=== PATIENT | female | born 1995 | race Caucasian/White ===

== ENCOUNTER 2019-12-08 20:06 | Emergency (ER) | payer OTHER ==
[~2019-12-08] VITALS: Ht 162.6 cm; Wt 165.0 kg
== END 2019-12-08 23:14 | disposition home or self-care (01) ==
LOC: ER 20:06
DX: S43.52XA Sprain of left acromioclavicular joint, initial encounter (principal); S93.401A Sprain of unspecified ligament of right ankle, initial encounter; W19.XXXA Unspecified fall, initial encounter; Y93.67 Activity, basketball
CPT/HCPCS: 73030; 73610; 99283-25

== ENCOUNTER 2020-04-28 09:00 | Day surgery (SDC) | payer OTHER ==
[2020-04-25 14:05] LABS: BASOPHILS ABSOLUTE AUTO 0.03 K/mm3 (0.00-0.23); BASOPHILS PERCENT AUTO 0 % (0-2); EOSINOPHILS ABSOLUTE AUTO 0.08 K/mm3 (0.00-0.68); EOSINOPHILS PERCENT AUTO 1 % (0-6); Hematocrit 41.2 % (33.0-51.0); IMMATURE GRAN ABSOLUTE AUTO 0.03 K/mm3 (0.00-0.10); IMMATURE GRAN PERCENT AUTO 0 % (0-1); LYMPHOCYTES ABSOLUTE AUTO 1.68 K/mm3 (0.84-5.20); LYMPHOCYTES PERCENT AUTO 25 % (21-46); MONOCYTES ABSOLUTE AUTO 0.56 K/mm3 (0.16-1.47); MONOCYTES PERCENT AUTO 8 % (4-13); Mean Corpuscular HGB 28.3 pg (26.0-34.0); Mean Corpuscular HGB Conc 31.6 g/dL (31.5-36.5); Mean Corpuscular Volume 90 fL (80-100); Mean Platelet Volume 8.7 fL (9.1-12.4); NEUTROPHILS ABSOLUTE AUTO 4.47 K/mm3 (1.96-9.15); NEUTROPHILS PERCENT AUTO 65 % (41-73); Platelet Count 321 K/mm3 (150-400); RDW Coefficient Variation 11.8 % (11.7-14.2); RDW Standard Deviation 38.1 fL (35.1-46.3); White Blood Cell Count 6.85 K/mm3 (4.00-11.30)
[~2020-04-28] VITALS: Ht 162.6 cm; Wt 77.1 kg
[~2020-04-28 09:00] MED LIST: CLON.5 PO; DIVA500ER PO; FLONASE ALLERG9.9 M2; IBUP200 PO; QUET100 PO; SERT100 PO; ZYRTEC10 M2 PO; [UNRECOGNIZED DRUG - OTHER] PO
[2020-04-28] MEDS ORDERED: Seroquel Xr50 MG PO (09:48)
--- NOTE | 2020-04-28 09:49 | NUR ---
PT ADMITTED TO [facility]. AGREES WITH PLANNED SURGERY. PT WITH DEVELOPMENTAL DELAY, CAREGIVER AT BEDSIDE. PT ALERT, ANSWERS APROPRIATLY. SPEECH CAN BE DIFFICULT TO UNDERSTAND.
--- NOTE | 2020-04-28 10:43 | NUR ---
DIFFICULT IV START. 20G PLACED GOTTEN ON 6TH ATTEMPT. OTHER ATTEMPTS BY GIULIA VELASCO RN X2 AND CARMEN OLSEN RN X2. PT TOLERATED WELL.
--- NOTE | 2020-04-28 11:10 | NUR ---
REPORT GIVEN TO YENY ANTONIO RN.
--- NOTE | 2020-04-28 12:11 | NUR ---
IV SITE LEAKING. IV ATTMEPTED MULTIPLE TIMES AGAIN. ACCESSESS OBTAINED ON RIGHT HAND (20G) BY DR. CALDERON. PT TOLERATED WELL.
--- NOTE | 2020-04-28 19:01 | NUR ---
SHIFT SUMMARY PT WAS INTIALLY VERY ANXIOUS AND HARD TO KEEP IN BED BUT QUICKLY CALMED. PT CANNOT USE NUMBER SCALE DUE TO HER DEVELOPMENTALLY DELAY. BUT EASILY COMMUNICATES PAIN. STATES "MY TUMMY HURTS" OR IS HAPPY AND LAUGHING. WHILE DRINKING JUICE AND WATCHING TV SHE STATES "THIS IS THE BEST DAY EVER. I FEEL GREAT" SHE IS CURRENTLY SMILING AND LAUGHING TALKING TO HERSELF.
[2020-04-29 04:00] LABS: BASOPHILS ABSOLUTE AUTO 0.01 K/mm3 (0.00-0.23); BASOPHILS PERCENT AUTO 0 % (0-2); EOSINOPHILS ABSOLUTE AUTO 0.01 K/mm3 (0.00-0.68); EOSINOPHILS PERCENT AUTO 0 % (0-6); Hematocrit 37.1 % (33.0-51.0); Hemoglobin 11.9 g/dL (11.5-16.0); IMMATURE GRAN ABSOLUTE AUTO 0.02 K/mm3 (0.00-0.10); IMMATURE GRAN PERCENT AUTO 0 % (0-1); LYMPHOCYTES PERCENT AUTO 20 % (21-46); MONOCYTES ABSOLUTE AUTO 0.85 K/mm3 (0.16-1.47); MONOCYTES PERCENT AUTO 9 % (4-13); Mean Corpuscular HGB 28.3 pg (26.0-34.0); Mean Corpuscular HGB Conc 32.1 g/dL (31.5-36.5); Mean Corpuscular Volume 88 fL (80-100); Mean Platelet Volume 8.6 fL (9.1-12.4); NEUTROPHILS ABSOLUTE AUTO 6.82 K/mm3 (1.96-9.15); NEUTROPHILS PERCENT AUTO 71 % (41-73); Platelet Count 261 K/mm3 (150-400); RDW Coefficient Variation 11.9 % (11.7-14.2); RDW Standard Deviation 38.1 fL (35.1-46.3); White Blood Cell Count 9.61 K/mm3 (4.00-11.30)
[2020-04-29] MEDS ORDERED: Percocet 5-3251 EACH PO (09:56)
[2020-04-29] MEDS ORDERED: IBUP100S PO (09:57)
[2020-04-29] MEDS ORDERED: PROM25 PO (09:58)
[2020-04-29] MEDS ORDERED: DOCU100 PO (12:24)
[2020-04-29] MEDS ORDERED: SENN187 PO (12:25)
[2020-04-29] MEDS ORDERED: Milk Of Ma400 MG/5 M PO (12:25)
[2020-04-29] MEDS ORDERED: Gas Relief80 MG PO (12:26)
[2020-04-29] MEDS ORDERED: IBUP800 PO (12:30)
--- NOTE | 2020-04-29 13:15 | NUR ---
1250 discharged to home with mother. denies nausea and shwetha po food and fluids. pt reports pain is well controlled
--- NOTE | 2020-05-01 15:26 | NUR ---
05/01/20 1526 Chrystal Wells VERIFICATIONS: EDIT CHART.
== END 2020-04-29 12:51 | disposition home or self-care (01) ==
LOC: ORSCMMR 09:00 → ORD 11:15 → ORSCMMR 11:15 → SURS 15:56 → ORSCMMR 04-29 12:51
PROVIDERS: Obstetrics & Gynecology
PROC: 0U5F4ZZ Destruction of Cul-de-sac, Percutaneous Endoscopic Approach (ICD-10-PCS; principal; 2020-04-28 11:15)
PROC: 8E0W4CZ Robotic Assisted Procedure of Trunk Region, Percutaneous Endoscopic Approach (ICD-10-PCS; principal; 2020-04-28 11:15)
PROC: 0UT94ZZ Resection of Uterus, Percutaneous Endoscopic Approach (ICD-10-PCS; principal; 2020-04-28 11:15)
PROC: 0UT74ZZ Resection of Bilateral Fallopian Tubes, Percutaneous Endoscopic Approach (ICD-10-PCS; principal; 2020-04-28 11:15)
DX: N92.0 Excessive and frequent menstruation with regular cycle (principal); N94.4 Primary dysmenorrhea; R10.2 Pelvic and perineal pain; N80.0 Endometriosis of uterus; N72 Inflammatory disease of cervix uteri; R62.50 Unspecified lack of expected normal physiological development in childhood; Z79.899 Other long term (current) drug therapy
CPT/HCPCS: 58571; 58662; S2900; 36415; 84702; 85025; 86850; 86900; 86901; 88307; J0690; J1100; J1885; J2250; J2405; J2704; J3010; J7120

== ENCOUNTER 2023-11-17 15:59 | Inpatient (IN) | payer OTHER ==
[~2023-11-17] VITALS: Ht 162.6 cm; Wt 81.7 kg
[~2023-11-17 15:59] MED LIST changes: -ABILIFY MYCITE10 M2 PO; -ABILIFY MYCITE5 M2 PO; -DIVA250EC PO; -DIVA500EC PO; -ESTRADIOL1 MG PO; -MIRT15ST PO; -Naltrexone HCl50 MG PO; -VALP250 PO
[2023-11-17] MEDS ORDERED: ABILIFY MYCITE10 M2 PO (16:27)
[2023-11-17] MEDS ORDERED: ABILIFY MYCITE5 M2 PO (16:27)
[2023-11-17] MEDS ORDERED: VALP250 PO (16:28)
[2023-11-17] MEDS ORDERED: ESTRADIOL1 MG PO (16:29)
[2023-11-17] MEDS ORDERED: DIVA500EC PO (16:29)
[2023-11-17] MEDS ORDERED: Naltrexone HCl50 MG PO (16:30)
[2023-11-17] MEDS ORDERED: ZYRTEC10 M2 PO (16:30)
[2023-11-17] MEDS ORDERED: MIRT15ST PO (16:30)
[2023-11-17] MEDS ORDERED: SERT100 PO (16:30)
[2023-11-17] MEDS ORDERED: IBUP200 PO (16:31)
[2023-11-17] MEDS ORDERED: DIVA250EC PO (16:33)
[2023-11-17 18:40] LABS: Adenovirus Not Detected (NOT DETECT); Bordetella pertussis Not Detected (NOT DETECT); Chlamydophila pneumoniae Not Detected (NOT DETECT); Coronavirus 229E Not Detected (NOT DETECT); Coronavirus HKU1 Not Detected (NOT DETECT); Coronavirus NL63 Not Detected (NOT DETECT); Coronavirus OC43 Not Detected (NOT DETECT); Human Metapneumovirus Not Detected (NOT DETECT); Human Rhinovirus/Enterovirus Not Detected (NOT DETECT); Influenza A/2009-H1 Not Detected (NOT DETECT); Influenza A/H1 Not Detected (NOT DETECT); Influenza A/H3 Not Detected (NOT DETECT); Influenza B Detected (NOT DETECT); Mycoplasma pneumoniae Not Detected (NOT DETECT); Parainfluenza Virus 1 Not Detected (NOT DETECT); Parainfluenza Virus 2 Not Detected (NOT DETECT); Parainfluenza Virus 3 Not Detected (NOT DETECT); Parainfluenza Virus 4 Not Detected (NOT DETECT); Respiratory Syncytial Virus Not Detected (NOT DETECT); SARS-Cov-2 (COVID-19), BioFire Not Detected (NOT DETECT)
[2023-11-17 20:49] VITALS: BP 110/70
[2023-11-18] VITALS (7 sets, daily range): BP systolic 102–121; BP diastolic 62–77
[2023-11-18 04:54] LABS: Hematocrit 31.2 % (33.0-51.0); Hemoglobin 10.1 g/dL (11.5-16.0); Mean Corpuscular HGB 28.4 pg (26.0-34.0); Mean Corpuscular HGB Conc 32.4 g/dL (31.5-36.5); Mean Corpuscular Volume 88 fL (80-100); Mean Platelet Volume 9.1 fL (9.1-12.4); Platelet Count 152 K/mm3 (150-400); RDW Coefficient Variation 12.5 % (11.7-14.2); RDW Standard Deviation 40.7 fL (35.1-46.3); Red Blood Cell Count 3.56 M/mm3 (3.80-5.20); White Blood Cell Count 6.77 K/mm3 (4.00-11.30)
[2023-11-18 05:15] LABS: Bun/Creatinine Ratio 14.9 (12.0-20.0); Creatinine, Blood 0.8 mg/dL (0.40-1.00); Potassium, Blood 3.8 mmol/L (3.5-5.5)
--- NOTE | 2023-11-18 05:30 | NUR ---
PATIENT IS ALERT AND ORIENTED X3, WITH OXYGEN AT 4 LPM/NASAL CANNULA. SHE CAME IN LAST NIGHT WITH HER MOM. WITH PVI LINE ON RIGHT WRIST PATENT AND INTACT. PLACED ON CONTACT PRECAUTION DUE TO INFLUENZA B. NOTED COUGHING FROM PATIENT. ASSISTED PATIENT TO THE BATHROOM. NO SKIN ISSUES NOTED. SHE WAS ABLE TO TAKE HER PILLS WITH ORANGE JUICE WITHOUT ANY ISSUES. HAD VOMITING X1 EPISODE, MEDICATED ACCOORDINGLY. NEEDS ATTENDED. CALL LIGHT WITHIN PATIENT'S REACH. WILL CONTINUE TO MONITOR.
[2023-11-18 16:31] LABS: Base Excess Venous 0.7 mmol/L; Bicarbonate Venous 25.1 mmol/L (24.0-30.0); PCO2 Venous 36.8 mmHg (38-42); pH Blood Venous 7.44 (7.34-7.37)
--- NOTE | 2023-11-18 17:36 | NUR ---
TRANSFER TO ICU: PT TRANFERRED FROM ROOM 303 TO ICU-16 AT APPROX 1715. THE PT IS PCU STATUS BUT IN DISCUSSION W/ PRIMARY MEDICAL FLOOR RN, UCHE & BLANE R, RT, IT IS DETERMINED THAT TRANFERRING TO THE ICU WILL BE MORE APPROPRIATE R/T PT's CONTINUED REMOVAL OF BIPAP MASK W/ DESATS NOTED TO LOW 80s WHEN OFF O2. ON ARRIVAL, THE PT IS DROWSY BUT AWAKENS EASILY. SHE IS A&O TO HERSELF, FAMILY & FOLLOWING DIRECTIONS. CAROL. HX DEVELOPMENTAL DELAY, PT's MOTHER HEATHER AT BEDSIDE & ASSIST W/ CARE MEASURES. LS DIM T/O, OCCASIONAL CONGESTED COUGH NOTED W/ NO SPUTUM VISUALIZED. PT ON BIPAP W/ SETTINGS: 18/7 & 60% FIO2, BACKUP RATE 14. PT TACHYPNEIC W/ RR 25-42, O2 SATS CURRENTLY READING > 95%. PT PERIODICALLY PLACED THUMB UNDER BIPAP MASK TO BREAK SEAL BUT IS REDIRECTABLE. MONITOR SHOWS SR W/ HR 70s, BP STABLE. PT NPO R/T BIPAP USE & SOMENOLENCE AT THIS TIME. PT IS CONTINENT OF URINE AT BASELINE, CURRENTLY WEARING ATTENDS R/T INCONTINENCE OF BOWEL & BLADDER ON ADMIT. SKIN OVERALL INTACT, Q2H REPOSITIONING TO MAINTAIN SKIN INTEGRITY. WILL CONTINUE TO MONITOR & REPORT OFF TO ONCOMING RN.
--- NOTE | 2023-11-18 17:42 | NUR ---
THROUGHOUT MORNING PT WAS ABLE TO STATE HER NEEDS AND AMBULATE TO BATHROOM WITH STANDBY ASSIST. PLACED PT ON CONT BIOX THIS AM D/T DESAT INTO HIGH 80'S WHILE AMBULATING. PT ABLE TO QUICKLY RETURN TO LOW TO MID 90'S ON 4L NC WITH A RESPIRATORY RATE OF 23 BPM. AROUND 1500 RT CAME OUT OF ROOM ASKING FOR HELP PT WAS TACHYPNEIC AND HYPOXIC DESPITE BEING TRANSITIONED TO 4L VIA MASK. 02 INCREASED TO 6L WITH LITTLE RESOLUTION. PT THEN TRANSITIONED TO BIPAP. PT ATTEMPTED TO PULL ON NC AND MASKS IN ATTEMPT TO HAVE OXYGEN OFF. DR. RAMOS ARRIVED TO ROOM TO ASSESS PT. STAT CT PE STUDY ORDERED. RESULTS IN CHART. NEW IV PLACED IN RAC. PT TOLERATED CT WELL. 02 SATS @ 96% ON BIPAP. REPORT GIVEN TO ISH YOO IN ICU. PT MOTHER AT BEDSIDE.
--- NOTE | 2023-11-18 19:00 | NUR ---
CARE ASSUMPTION DURING BEDSIDE SHIFT REPORT W NAILA DENG THE PT IS LYING IN BED WEARING BIPAP MASK. RT, DR. MATOS AND THE PT'S MOTHER ALL AT BEDSIDE AT THIS TIME. PT'S SPO2 >94% ON BIPAP 14/6 W 40% FIO2 BUT IS VERY TACHYPNEIC W RR 30-40. PT IS ALERT AND MAINTAINING EYE CONTACT. CARE ASSUMED AT THIS TIME.
[2023-11-19] VITALS (24 sets, daily range): BP systolic 93–123; BP diastolic 63–96
--- NOTE | 2023-11-19 06:29 | NUR ---
FORMULA WEIGHER SUMMARY PT HAS REMAINED ALERT AND ORIENTED X3 THIS SHIFT USING THE CALL LIGHT TO MAKE HER NEEDS KNOWN. PT BEGAN SHIFT ON BIPAP 16/6 W 40% FIO2 BUT WAS ABLE TO COME OFF FOR SEVERAL HOURS ONTO 10L OXYMIZER BUT DID REQUIRE THE BIPAP AGAIN THIS AM AND REMAINS 14/6 W 35% FIO2. PT'S SPO2 DOES DROP RAPIDLY WHEN OFF OF O2 INTO THE 70'S. BP STABLE THIS SHIFT. MONITOR HAS SHOWN SR 80'S-90'S THIS SHIFT. PT AFEBRILE. PT REMAINS TACHYPNEIC W SHALLOW TIGHT RESPIRATIONS. PT WAS BEING ORALLY SUCTIONED THIS AM AND VAGALED DOWN RESULTING IN BRIEF BRADYCARDIA AT 40 BPM WHICH RESOLVED QUICKLY. PT HAD SEVERAL SMALL LOOSE BM'S THIS SHIFT. WILL REPORT TO ONCOMING RN.
[2023-11-19 08:03] LABS: BASOPHILS ABSOLUTE AUTO 0.01 K/mm3 (0.00-0.23); BASOPHILS PERCENT AUTO 0 % (0-2); EOSINOPHILS PERCENT AUTO 0 % (0-6); Hematocrit 29.7 % (33.0-51.0); Hemoglobin 9.4 g/dL (11.5-16.0); IMMATURE GRAN ABSOLUTE AUTO 0.01 K/mm3 (0.00-0.10); IMMATURE GRAN PERCENT AUTO 0 % (0-1); LYMPHOCYTES ABSOLUTE AUTO 0.85 K/mm3 (0.84-5.20); LYMPHOCYTES PERCENT AUTO 16 % (21-46); MONOCYTES PERCENT AUTO 10 % (4-13); Mean Corpuscular HGB 28.3 pg (26.0-34.0); Mean Corpuscular HGB Conc 31.6 g/dL (31.5-36.5); Mean Corpuscular Volume 90 fL (80-100); Mean Platelet Volume 9.2 fL (9.1-12.4); NEUTROPHILS ABSOLUTE AUTO 3.83 K/mm3 (1.96-9.15); NEUTROPHILS PERCENT AUTO 74 % (41-73); Platelet Count 146 K/mm3 (150-400); RDW Standard Deviation 42.7 fL (35.1-46.3); Red Blood Cell Count 3.32 M/mm3 (3.80-5.20)
[2023-11-19 08:19] LABS: Albumin, Blood 2.4 g/dL (3.4-5.0); Albumin/Globulin Ratio 0.6 (0.8-1.8); Bilirubin, Total 0.3 mg/dL (0.1-1.0); Bun/Creatinine Ratio 9.4 (12.0-20.0); Calcium, Blood 7.8 mg/dL (8.5-10.1); Creatinine, Blood 0.74 mg/dL (0.40-1.00); Globulin, Blood 4.1 g/dL (2.2-4.0); Potassium, Blood 4.2 mmol/L (3.5-5.5); Total Protein, Blood 6.5 g/dL (6.4-8.2)
--- NOTE | 2023-11-19 10:01 | NUR ---
CARE OF PT ASSUMED AT 0700. PT INITIALLY SLEEPING ON BIPAP, PT PLACED ON OXYMIZER AT 10L, SATS HAVE REMAINED >90%. PT HAS COURSE RHONCHI TO BASES, RHONCHI T/O, DIMINISHED TO BASES, TACHYPNEA, DYSPNEA W EXERTION. RESP SHALLOW, RAPID, AND LABORED AT TIMES. CPT STARTED TODAY. PT WITH LIQUID DIARRHEA/URGENCY, SOME INCONTINENCE. IMODIUM STARTED. PT ABLE TO LET NEEDS KNOWN. REQUEST OJ AND ASSIST WITH BATHROOM, USES CALL LIGHT APPROPRIATELY. PT WITH DEVELOPMENTAL DELAY, C/O NAUSEA THIS AM; ZOFRAN GIVEN. FRANK LIQUIDS. PT STATES, "I AM VERY SICK". PT GIVEN BEDBATH AND WARM BLANKETS, AFEBRILE. DR RAMOS IN TO SEE PT THIS AM, DR MATOS GIVEN UPDATE. PT'S MOTHER GIVEN UPDATE BY WHIP OPERATOR.
--- NOTE | 2023-11-19 12:08 | NUR ---
PT DROWSY, UNABLE TO EAT LUNCH SAFELY. PT'S MOTHER AT BEDSIDE. DR MATOS WAS IN EARLIER TO SEE PT AND SPOKE WITH PT'S MOTHER. OXYMIZER CHANGED TO AIRVO 50L/50% BY RT.
[2023-11-19 13:41] LABS: Base Excess Venous 1.2 mmol/L; Bicarbonate Venous 25.2 mmol/L (24.0-30.0); PCO2 Venous 43.8 mmHg (38-42); pH Blood Venous 7.39 (7.34-7.37)
--- NOTE | 2023-11-19 16:49 | NUR ---
1400 KLONOPIN HELD FOR SEDATION. PT MUCH MORE AWAKE THIS AFTERNOON. AWAKE WATCHING CARTOONS, ABLE TO USE CALL LIGHT. DIARRHEA HAS SLOWED SLIGHTLY WITH IMODIUM. SATS >90% ON AIRVO AT 55L/57%. RT PROVIDING CPT AND NAC UPDRAFTS TO HELP LOOSEN SPUTUM. PT ABLE TO COUGH UP LARGE AMTS OF THICK SPUTUM AT TIMES, OTHERWISE COUGH REMAINS WEAK. PT'S MOM HAS BEEN AT BEDSIDE THROUGHOUT SHIFT. NS DECREASED TO 50CC/HR. PT TOLERATING SBA TO COMMODE, SATS DO NOT DROP <90% WITH ACTIVITY. PT HAS HAD POOR APPETITE BUT ENJOYS DRINKING ORANGE JUICE.
--- NOTE | 2023-11-19 20:36 | NUR ---
ASSUMPTION OF CARE REPORT RECEIVED FROM DAYSHIFT RN. PT RESTING IN BED, SLEEPING BUT AROUSABLE. PT COMMUNICATES WITH STAFF APPROPRIATELY. PT WEAK BUT ABLE TO MOVE ALL EXTREMITIES EQUALLY BILATERALLY. HR 80'S SINUS, MAP >65, SBP 100'S. PT ON AIRVO 55L 64%, OXYGEN SATURATION >90%, PT IS TACHYPNIC WITH SHALLOW RESPIRATIONS. PT UP TO BEDSIDE COMMODE WITH ASSISTANCE, MINIMAL LIQUID STOOL NOTED IN ATTENDS. ATTENDS REPLACED. PT COMPLAINED OF NAUSEA, MEDICATED PER EMAR. PT DENIES CP. PIV TO KISHAN INFUSING NS AT 50MLS/HR. PIV TO RAC SL. BED IN LOWEST POSITION, CALL LIGHT WIHTIN REACH, CARE CONTINUES.
--- NOTE | 2023-11-19 23:23 | NUR ---
PT UPDATE PT BECAME MORE AGITATED, ATTEMPTING AND SUCCEEDING TO PULL OFF THE AIRVO. PT RESISTING BY SHAKING HEAD BACK AND FORTH AND PULLING WHEN TRYING TO REPLACE THE CANULA. PT NOT REDIRECTABLE, CONTINUES TO PULL AT AIRVO. KLONOPIN GIVEN PER EMAR. PT DESATURATED TO 80'S. RT CALLED, PT PLACED BACK ON BIPAP 16/6 100%. PT CONTINUES TO ATTEMPT TO PULL AT MASK, ATIVAN GIVEN PER EMAR WITH LITTLE EFFECT. PT DESATURATED TO THE 60-70'S. CALL PLACED TO DR. MATOS REGARDING PT CONDITION, ORDERS RECEIVED TO INCREASE BIPAP SETTINGS, BIPAP SETTINGS CURRENTLY 16/8 45%, OXYGEN SATURATION INCREASED, CURRENTLY AT 96%. ORDERS RECEIVED FOR ATIVAN AND PRECEDEX IF NEEDED. PT NOW RESTING COMFORTABLY WITH SITTER AT BEDSIDE.
[2023-11-20] VITALS (25 sets, daily range): BP systolic 93–141; BP diastolic 65–123
[2023-11-20 04:11] LABS: Base Excess Venous 3.1 mmol/L; Bicarbonate Venous 26.3 mmol/L (24.0-30.0); PCO2 Venous 52.4 mmHg (38-42); pH Blood Venous 7.35 (7.34-7.37)
[2023-11-20 04:40] LABS: BASOPHILS ABSOLUTE AUTO 0.02 K/mm3 (0.00-0.23); BASOPHILS PERCENT AUTO 0 % (0-2); EOSINOPHILS ABSOLUTE AUTO 0.01 K/mm3 (0.00-0.68); EOSINOPHILS PERCENT AUTO 0 % (0-6); Hematocrit 28.4 % (33.0-51.0); Hemoglobin 8.9 g/dL (11.5-16.0); IMMATURE GRAN ABSOLUTE AUTO 0.05 K/mm3 (0.00-0.10); IMMATURE GRAN PERCENT AUTO 1 % (0-1); LYMPHOCYTES ABSOLUTE AUTO 1.29 K/mm3 (0.84-5.20); LYMPHOCYTES PERCENT AUTO 29 % (21-46); MONOCYTES ABSOLUTE AUTO 0.57 K/mm3 (0.16-1.47); MONOCYTES PERCENT AUTO 13 % (4-13); Mean Corpuscular HGB 28.2 pg (26.0-34.0); Mean Corpuscular HGB Conc 31.3 g/dL (31.5-36.5); Mean Corpuscular Volume 90 fL (80-100); Mean Platelet Volume 9.3 fL (9.1-12.4); NEUTROPHILS ABSOLUTE AUTO 2.55 K/mm3 (1.96-9.15); NEUTROPHILS PERCENT AUTO 57 % (41-73); Platelet Count 161 K/mm3 (150-400); RDW Coefficient Variation 12.9 % (11.7-14.2); Red Blood Cell Count 3.16 M/mm3 (3.80-5.20); White Blood Cell Count 4.49 K/mm3 (4.00-11.30)
[2023-11-20 04:54] LABS: Bun/Creatinine Ratio 7.6 (12.0-20.0); Creatinine, Blood 0.79 mg/dL (0.40-1.00); Potassium, Blood 4.1 mmol/L (3.5-5.5)
--- NOTE | 2023-11-20 05:53 | NUR ---
SHIFT SUMMARY PT RESTING IN BED, SLEEPING BUT AROUSABLE. PT COMMUNICATE WITH STAFF APPROPRIATELY, USES CALL LIGHT. PT CONTINUES TO ATTEMPT TO PULL AT BIPAP MASK, PT REDIRECTABLE ALSO MEDICATED WITH ATIVAN PER EMAR WITH GOOD RESULT. PT MOVES ALL EXTREMITIES EQUALLY BILATERALLY. PT COMPLAINED OF HEADACHE, MEDICATED WITH TYLENOL PER EMAR. HR 70-80'S SINUS, PT HAS HAD TO EPISODES OF HR DOWN TO THE 40-50'S, SEE STRIPS IN CHART. BP STABLE, MAP >65, SBP 100-120'S. PT SWITCHED TO BIPAP MASK THIS SHIFT, SETTINGS 16/8 35%, OXYGEN SATURATION >95%. PT DENIES URGE TO VOID, BLADDER SCAN SHOWED 453MLS. PT HAS HAD TWO EPISODES OF DIARRHEA, MEDICATED WITH IMODIUM PER EMAR. PT ALSO COMPLAINED OF NAUSEA ONCE THIS SHIFT, MEDICATED PER EMAR. PIV TO RAC AND KISHAN. NS INFUSING AT 50MLS/HR. BED IN LOWEST POSITION, CALL LIGHT WITHIN REACH, CARE CONTINUES.
[2023-11-20 07:32] LABS: Vancomycin, Trough 10.1 ug/mL (5.0-10.0)
--- NOTE | 2023-11-20 11:18 | NUR ---
AROUND WHILE IN MARTITA'S ROOM, SHE WAS STRUGGLING WITH KEEPING ON HER AIRVO, TRIALED DIFFERENT DELIVERY DEVICES AND SHE IS CURRENTLY ON HIFL NC AT 5L AND IS TOLERATING WELL WITH SATS IN MID 90S. SHE EXPRESSES FEELING BETTER AND DOESN'T WANT TO WEAR THE OXYGEN, SHE IS INFORMED AND EDUCATED ABOUT THE NEED FOR THE OXYGEN. A SITTER WAS OBTAINED TO HELP REMIND HER TO KEEP HER O2 IN HER NOSE. SHE HAS BEEN UP TO THE [facility] AND DONE WELL WITH THE TRANSFER, SHE WAS ABLE TO TAKE IN WATER, HER MEDS AND SOME ORANGE JUICE BUT ONLY TOOK IN ONE BITE OF HER BREAKFAST. MOTHER WAS HERE FOR A VISIT, FELT THAT SHE WAS "CON- TRIBUTING" TO [facility] WANTING TO REMOVE HER OXYGEN CANNULA SO SHE HAS LEFT. SITTER IN ROOM AND PT IS RESTING.
--- NOTE | 2023-11-20 15:23 | NUR ---
MARTITA CONTINUES TO GET UP TO THE BSC AND ASKS FOR HER BRIEF TO BE CHANGED, SHE HAS HAD MINIMAL OUTPUT. LIQUID DIARRHEA CONTINUES IN SMALL AMOUNTS. SHE HASN'T EATEN OR DRANK VERY MUCH TODAY. SHE HAS BEEN ENCOURAGED TO DRINK AND ONLY EATS A BITE OR TWO WITH HER MEALS.
--- NOTE | 2023-11-20 16:41 | NUR ---
MARTITA IS SHOWING SIGNS OF FATIGUE. HER RESP RATE HAS INCREASED CONSIDERABLY, HER HEART RATE IS HIGHER AND SATS DROPPING. SHE IS PLACED ON THE BIPAP WITH MUCH MORE RESISTANCE. SHE IS VERBALLY UPSET AND ASKED ABOUT STARTING THE MED TO "RELAX" HER. PRECEDEX STARTED AT 0.4MCG/KG AND EDUCATION TO MOM AND PATIENT ABOUT THE MEDS. MOM TRYING TO ENCOURAGE MARTITA TO SLOW DOWN HER BREATHING, RATE CONT IN THE 40-50'S.
--- NOTE | 2023-11-20 17:10 | NUR ---
MARTITA IS CALMING DOWN WITH THE USE OF THE PRECEDEX, MOTHER EDUCATED ABOUT THE MONITOR AND THE READINGS, SHE (MOM) CONCERNED ABOUT THE WAVEFORM ON THE PLETH GOING FLAT, INFORMED HER THAT WITH THE BLOOD PRESSURE CUFF GOING OFF THAT IS EXPECTED. MARTITA'S RESP RATE CONTINUE IN THE 30'S TO 40'S BUT SHE IS CALMING. EDUCATION PROVIDED TO BOTH PT AND MOM. SITTER REMAINS AT BEDSIDE TO KEEP HER FROM PULLING OFF HER OXYGEN.
--- NOTE | 2023-11-20 18:13 | NUR ---
MARTITA HAS BEEN ON THE BIPAP FOR THE LAST HOUR OR SO, SHE IS TOLERATING THE MASK BETTER WITH THE PRECEDEX 0.4. SHE HAS BEEN UP TO THE BSC EVERY COUPLE OF HOURS, HER BRIEF HAS NOT BEEN WET AND SHE HAS HAD UNMEASURABLE AMOUNTS OF URINE EACH TIME. SHE CONTINUES TO HAVE "LEAKAGE" OF LIQUID STOOL. SHE HASN'T HAD AN APPETITE, WILL TAKE 1-2 BITES AND THEN SAY SHE IS FINISHED. NOW THAT SHE IS ON THE MASK SHE IS ASKING FOR MORE TO DRINK, (SHE KNOWS THAT SHE CAN HAVE THE MASK OFF). GLENN REMAINS AT BEDSIDE.
--- NOTE | 2023-11-20 21:26 | NUR ---
ASSUMPTION OF CARE: RECEIVED REPORT FROM JACKIE DENG. PT ALERT AND ORIENTED TO PERSON AND PLACE. PT A LITTLE CONFUSED AT TIMES, OFTEN REPEATS HERSELF AND MOANS OUT. PT ON THE BIPAP WITH SETTINGS 16/8/35%. SPO2 >90%. PT DENIES SOB. PT DENIES ANY PAIN. PT FREQUENTLY TACHYPNIC WITH RR 30'S-50'S. LUNG SOUNDS CLEAR AND DIM T/O. SCALING MACHINE OPERATOR IN PLACE, SR WITH HR 60'S-70'S. SBP 130'S, DENIES CHEST PAIN OR PRESSURE. PT ABLE TO TOLERATE VERY QUICK BREAKS FROM THE BIPAP FOR A SIP OF WATER BUT DESATS TO THE 70'S-80'S. PT NOT ABLE TO VOID, BLADDER SCAN SHOWS 565 ML'S OF URINE. PRECEDEX INFUSING AT 0.4 MCG/KG/HR. NS AT 50 ML/HR. PIV'S INTACT. CALL LIGHT IN REACH. CASH MANAGEMENT CLERK AT THE BEDSIDE.
[2023-11-20 22:44] LABS: PCO2 Arterial 41.7 mmHg (35-45); PO2 Arterial 64.5 mmHg (80-100); pH Blood Arterial 7.43 (7.35-7.45)
[2023-11-21] VITALS (39 sets, daily range): BP systolic 81–139; BP diastolic 68–100
[2023-11-21 00:02] LABS: Source, Urine Foley catheter
[2023-11-21 00:31] LABS: Bilirubin, Urine Neg (Neg); Blood, Urine 2+ (Neg); Glucose Qualitative, Urine Neg (Neg); Ketones, Urine 2+ (Neg); Leukocyte Esterase, Urine Neg (Neg); Nitrite, Urine Neg (Neg); Protein, Urine 2+ (Neg); Urobilinogen, Urine NORM (Normal)
[2023-11-21 01:03] LABS: Appearance, Urine Hazy (Clear); Color, Urine Yellow (P-Yellow)
[2023-11-21 01:05] LABS: Bacteria Many /hpf; Red Blood Cells, Urine 0-2 /hpf (0-2); Squamous Epithelial Cells Mod /hpf (Few); White Blood Cells, Urine 0-2 /hpf (0-5)
--- NOTE | 2023-11-21 06:21 | NUR ---
SHIFT SUMMARY: PT MORE SOMNOLENT T/O THE SHIFT. AWAKENS TO VERBAL STIMULI AND MOANS BUT QUICKLY FALLS BACK ASLEEP WHEN NOT STIMULATED. PT ABLE TO STATE HER NAME AND THAT SHE IS IN THE HOSPITAL. PT REMAINS ON BIPAP T/O THE SHIFT, SETTINGS 18/8/40%. LUNG SOUNDS CLEAR/DIM T/O. MORE DIM ON THE LEFT SIDE. SPO2 89-90%. PT DESATS TO MID 70'S-80'S WHEN TRIALED OFF FOR BREAK FOR ORAL CARE/ SIP OF WATER. SCHOOL SUPERINTENDENT IN PLACE, SR/SB WITH HR 50'S-60'S. SBP 130'S. PRECEDEX AT 0.4 MCG/KG/HR, ATTEMPTED TO TITRATE PRECEDEX DOWN AND PT BECAME AGGITATED, STARTED PULLING AT THE BIPAP AND WAS NOT EASILY REDIRECTABLE. NS AT 50 ML/HR. PIV'S INTACT. PT UNABLE TO VOID, STRAIGHT CATH PERFORMED, 700 ML'S OF DARK URINE OUT. DR. MATOS GAVE ORDERS TO LEAVE DIAMOND IN PLACE FOR CRITICAL I&O. DIAMOND DRAINING TO GRAVITY. NO BM THIS SHIFT. SITTER REMAINS AT BEDSIDE. CALL LIGHT IN REACH.
--- NOTE | 2023-11-21 07:00 | NUR ---
ASSUME CARE: I have assumed care of this patient.
[2023-11-21 08:58] LABS: Vancomycin, Trough 22.4 ug/mL (5.0-10.0)
--- NOTE | 2023-11-21 15:52 | NUR ---
CAREGIVER UPDATE: Pt's caregiver at foster home updated with pt's permission.
--- NOTE | 2023-11-21 17:42 | NUR ---
SHIFT SUMMARY: Pt alert and plesant. She was up to chair for about an hour today. She was also up to commode a few times as well. Pt tolerates Airvo while off BIPAP, but becomes tachypnaic after some time. She does not tolerate BIPAP without precedex. Her mother was at bedside this afternoon and was updated on plan of care. Student nurse was observed provideing education to pt regarding the IS and flutter valve. Pt requires frequent reinforcement, but does elicit good cough. Browning patent and draining to gravity. Minimal appetite today.
--- NOTE | 2023-11-21 19:00 | NUR ---
ASSUMED CARE OF PT AT 1900 PT RESTING IN BED ON BIPAP AT THIS TIME. 1:1 SITTER PRESENT. PRECEDEX AT 0.3 MCG WITH TKO. VITALS WNL. DIAMOND CATH DRAINING YELLOW URINE AND APPEARS PATENT. PRECEDEX TURNED TO SB AT THIS TIME D/T PO MEDICATIONS NEEDED AT 2100. SEE FULL ASSESSMENT FOR FURTHER INFORMATION.
[2023-11-22] VITALS (23 sets, daily range): BP systolic 108–130; BP diastolic 44–87
[2023-11-22 04:00] LABS: Hematocrit 28.4 % (33.0-51.0); Hemoglobin 9.1 g/dL (11.5-16.0); Mean Corpuscular HGB 27.9 pg (26.0-34.0); Mean Corpuscular Volume 87 fL (80-100); Mean Platelet Volume 8.6 fL (9.1-12.4); NRBC ABSOLUTE 0.03 K/mm3 (0.00-0.02); NRBC Auto 0.4 /100 WBC (0.0-0.2); Platelet Count 242 K/mm3 (150-400); RDW Coefficient Variation 12.8 % (11.7-14.2); Red Blood Cell Count 3.26 M/mm3 (3.80-5.20); White Blood Cell Count 8.39 K/mm3 (4.00-11.30)
[2023-11-22 04:32] LABS: BAND PERCENT MAN 5 % (0-8); BASOPHILS PERCENT MAN 0 % (0-2); EOSINOPHILS ABSOLUTE MAN 0.25 K/mm3 (0.00-0.68); EOSINOPHILS PERCENT MAN 3 % (0-6); LYMPHOCYTES % ATYPICAL MANUAL 1 % (0-0); LYMPHOCYTES ABSOLUTE MAN 1.34 K/mm3 (0.84-5.20); LYMPHOCYTES PERCENT MAN 15 % (21-46); MONOCYTES ABSOLUTE MAN 0.58 K/mm3 (0.16-1.47); MONOCYTES PERCENT MAN 7 % (4-13); MYELOCYTE ABSOLUTE MAN 0.25 K/mm3 (0.00-0.00); MYELOCYTE PERCENT MAN 3 % (0-0); NEUTROPHILS ABSOLUTE MAN 5.95 K/mm3 (1.96-9.15); SEG NEUTROPHILS PERCENT MAN 66 % (41-73); TOTAL CELLS COUNTED 100
[2023-11-22 04:40] LABS: Anion Gap 5 mmol/L (6-16); Blood Urea Nitrogen 8 mg/dL (8-24); CO2, Blood 28 mmol/L (21-32); Chloride, Blood 107 mmol/L (98-108); Creatinine, Blood 0.67 mg/dL (0.40-1.00); Glomerular Filtration Rate 124 (60-); Glucose, Blood 103 mg/dL (70-99); Phosphorus, Blood 5.4 mg/dL (2.5-4.9); Potassium, Blood 3.7 mmol/L (3.5-5.5); Sodium, Blood 140 mmol/L (136-145)
--- NOTE | 2023-11-22 06:03 | NUR ---
END OF SHIFT SUMMARY PT RESTED ON BIPAP WITH PRECEDEX MOST OF THIS SHIFT. PT WILL NOT TOLERATE BIPAP AND REFUSED TO WEAR IT UNTIL PRECEDEX WAS GIVEN TIME TO CALM PT. 1:1 SITTER LEFT THIS AM AT 0520 D/T NO NEED FOR SITTER. PT NOT PULLING AT MASK AND IS ABLE TO COMMUNICATE NEEDS. DESATS WITH BIPAP NOT ON, EVEN WITH NC. ENCOURAGEMENT TO BREATH PROPERLY IS CONSTANTLY NEEDED WHEN OFF BIPAP. BIPAP 18/10 50% WITH SPO2 >90%. RR CONTINUES TO RANGE BETWEEN 20'S-30'S WHEN SLEEPING. 30'S- 40'S WHEN AWAKE. ATIVAN GIVEN ONCE TIME BEFORE BIPAP WAS IMPLEMENTED AFTER SMALL BREAK FOR MEDICATIONS AND MOUTH CARE. NO ACUTE FINDINGS TO REPORT. CONT TO MONITOR UNTIL REPORT GIVEN TO AM RN.
--- NOTE | 2023-11-22 06:37 | NUR ---
PT BECOMING EXTREME BRADYCARDIA WITH HR IN 30'S THEN BACK UP TO 50'S. PT IS ASYMPTOMATIC AT THIS TIME. ANSWERS QUESTIONS. PRECEDEX PUT ON STANDBY D/T HR. CON TO MONITOR.
--- NOTE | 2023-11-22 14:00 | NUR ---
Dobhoff: Dobhoff placed to R nare without difficulty. 60 cm marking at end of nare. Placement verified with chest x-ray, read by Dr. Vizcaino.
--- NOTE | 2023-11-22 15:25 | NUR ---
DISCUSSED CASE WITH DR. THAO. HE REPORTED THAT MARTITA IS TYPICALLY A VERY ACTIVE AND HEALTHY. I MET WITH MARTITA AND HER MOM HEATHER. WE DISCUSSED JHON NORMAL ROUTINE. SHE LIVES AT [facility] IS A [facility]IOR [facility] AND COMES HOME WITH HER PARENTS ON THE WEEKENDS. SHE IS VERY ACTIVE IN SPORTS AND VOLUNTERING. HEATHER SAID THAT SHE NEVER HAS BEEN SICK LIKE THIS BEFORE, SHE REPORTED THAT MARTITA IS SEEMING TO BE DOING BETTER BUT SHE KNOWS SHE IS STILL VERY ILL AT THIS POINT. AN NG TUBE WAS PLACE TO PROVIDE NUTRITION. MARTITA IS DOING BETTER WITH THE NASAL O2 DELIVERY OPPOSED TO THE MASK. SHE WAS NOT TOLORATING IT WELL AND WAS TRYING TO REMOVE IT LAST NIGHT.
[2023-11-22 15:53] LABS: Acinetobacter baumannii DNA Not Detected copy/mL (NOT DETECT); Enterobacter cloacae DNA Not Detected copy/mL (NOT DETECT); Escherichia coli DNA Not Detected copy/mL (NOT DETECT); Haemophilus influenzae DNA Not Detected copy/mL (NOT DETECT); Klebsiella aerogenes DNA Not Detected copy/mL (NOT DETECT); Klebsiella oxytoca DNA Not Detected copy/mL (NOT DETECT); Klebsiella pneumoniae DNA Not Detected copy/mL (NOT DETECT); Moraxella catarrhalis DNA Not Detected copy/mL (NOT DETECT); Proteus sp DNA Not Detected copy/mL (NOT DETECT); Pseudomonas aeruginosa DNA Not Detected copy/mL (NOT DETECT); Serratia marcescens DNA Not Detected copy/mL (NOT DETECT); Staphylococcus aureus DNA Not Detected copy/mL (NOT DETECT); Streptococcus agalactiae DNA Not Detected copy/mL (NOT DETECT); Streptococcus pneumoniae DNA Not Detected copy/mL (NOT DETECT); Streptococcus pyogenes DNA Not Detected copy/mL (NOT DETECT)
[2023-11-22 15:54] LABS: Adenovirus DNA Not Detected (NOT DETECT); Chlamydia pneumonia Not Detected (NOT DETECT); Human Coronavirus RNA Not Detected (NOT DETECT); Human Metapneumovirus RNA Not Detected (NOT DETECT); Influenza virus A RNA Not Detected (NOT DETECT); Influenza virus B RNA Detected (NOT DETECT); Legionella pneumophila Not Detected (NOT DETECT); Mycoplasma pneumoniae Not Detected (NOT DETECT); Parainfluenza virus RNA Not Detected (NOT DETECT); Respiratory syncytial Vir RNA Not Detected (NOT DETECT); Rhinovirus+Enterovirus RNA Not Detected (NOT DETECT)
--- NOTE | 2023-11-22 18:08 | NUR ---
SUMMARY PT HAS BEEN OFF PRECEDEX SINCE DOCK SUPERINTENDENT LAST NIGHT. ALERT AND BRADYCARDIA HAS RESOLVED. PT ABLE TO TAKE SOME PO INTAKE BUT PROBABLY NOT SUFFICIENT FOR HOW MANY DAYS SHE HAS BEEN HOSPITALIZED. DOBHOFF PLACED FOR EXTRA NUTRITION. PT HAS 1:1 SITTER TO ENSURE PT DOES NOT PULL DOBHOFF OUT OR OXYGEN OFF. STARTING TO COUGH UP SOME SPUTUM. SPUTUM SAMPLE SENT TODAY. ABLE TO GET OOB A COUPLE OF TIMES TO BSC THEN BACK TO BED. DID NOT DESAT ON AIRVO. OVERALL GOOD DAY. NO SIGN OF DISTRESS.
--- NOTE | 2023-11-22 19:00 | NUR ---
ASSUMPTION OF CARE REPORT GIVEN BY OCTAVIA DENG. KNOCKER OUT AT BEDSIDE ASSISTING PT TO COMMODE. ALERT AND ORIENTED. ON AIRVO SPO2>96%. ON TELE IN NSR. NO VOICED CONCERNS BY KNOCKER OUT OR PT AT THIS TIME. NON-CLINICAL SITTER AT BEDSIDE. CALL HOWARD IN REACH.
--- NOTE | 2023-11-22 20:05 | NUR ---
RESPIRATORY SPO2 NOT COMING ABOVE 84-85%. PT MOUTH BREATHING ENCOURAGED TO BREATH THROUGH NOSE BUT WILL NOT CONTINUOUSLY DO SO. RT CALLED AND MADE AWARE OF SPO2. RT IN TO ASSESS. TRIED A CHIN STRAP TO ASSIST PT WITH KEEPING MOUTH CLOSED TO NOSE BREATHE. DID NOT [id number] THAT. BIPAP PUT ON 18/12 65%. CONTINUSOULY GRABBING AT BIPAP, NOT TOLERATING IT. 0.5MG ATIVAN GIVEN PER EMAR TO HELP SETTLE.
[2023-11-23] VITALS (22 sets, daily range): BP systolic 102–144; BP diastolic 61–99
[2023-11-23 03:55] LABS: Hematocrit 29.1 % (33.0-51.0); Hemoglobin 9.3 g/dL (11.5-16.0); Mean Corpuscular Volume 88 fL (80-100); Mean Platelet Volume 8.6 fL (9.1-12.4); NRBC ABSOLUTE 0.02 K/mm3 (0.00-0.02); NRBC Auto 0.2 /100 WBC (0.0-0.2); Platelet Count 333 K/mm3 (150-400); RDW Coefficient Variation 12.7 % (11.7-14.2); RDW Standard Deviation 40.7 fL (35.1-46.3); Red Blood Cell Count 3.32 M/mm3 (3.80-5.20); White Blood Cell Count 9.68 K/mm3 (4.00-11.30)
[2023-11-23 04:16] LABS: Bun/Creatinine Ratio 16.1 (12.0-20.0); Calcium, Blood 8.4 mg/dL (8.5-10.1); Creatinine, Blood 0.69 mg/dL (0.40-1.00); Magnesium, Blood 2.4 mg/dL (1.6-2.4); Phosphorus, Blood 5.3 mg/dL (2.5-4.9); Potassium, Blood 3.9 mmol/L (3.5-5.5)
--- NOTE | 2023-11-23 05:53 | NUR ---
SHIFT SUMMARY ALERT AND ORIENTED X4. 1 DOSE OF ATIVAN GIVEN HS TO HELP SETTLE TO TOLERATE BIPAP. TOLERATED BIPAP VERY WELL THROUGHOUT NIGHT, SETTINGS 18/12 65% THEN DECREASED TO 55%. REMAINED IN SR, BP STABLE. TOLERATING NG, TF RUNNING AT 20. DIAMOND INSITU DRAINED 600ML. UP TO COMMODE X2 FOR LIQUID STOOL. SITTER AT BEDSIDE THROUGHOUT NIGHT. NO VOICED CONCERNS BY PT AT THIS TIME. REMAINS AWAKE WATCHING TV. CALL HOWARD IN REACH
--- NOTE | 2023-11-23 10:37 | NUR ---
AM NOTE... ASSUMED CARE OF PT AT 0700, PT IS A&OX4 WITH A SLIGHT DELAY. SHE IS ON THE BIPAP AT 18/10 AND 50% WITH O2 SATS>90% L/S DIM T/O COARSE IN THE RUL. SHE IS IN SR IN THE 70'S. BP IS STABLE WITH MAPS>70. DOBHOFF IS RUNNING PER ORDERS. ORAL CARE DONE ONCE THE BIPAP MASK WAS OFF. THE PT WAS PLACED ON THE AIRVO AT 45L AND 95% WITH O2 SATS IN THE LOW 90'S. SHE WAS ABLE TO GET UP TO THE BSC AND BACK TO BED BUT ONCE SHE WAS BACK INTO BED HER O2 SATS DROPPED DOWN TO THE LOW 80'S SHE WAS PLACED BACK ON THE BIPAP MASK TO RECOVER. WILL CONTINUE TO MONITOR.
--- NOTE | 2023-11-23 18:32 | NUR ---
SHIFT SUMMARY... NO ACUTE NEGATIVE CHANGES NOTED THIS SHIFT. PT WAS ON THE AIRVO AT 45L AND 94% FOR MOST OF THIS SHIFT. PT WAS UP IN THE RECLINER CHAIR FOR APROX 3HRS TODAY AND WAS ON THE BSC 3 TIMES, SBA TRANSFER. DOBHOFF IS RUNNING PER ORDERS AT 20MLS/HR DIAMOND IS PATENT AND DRAINING TO GRAVITY. 1:1 SITTER AT THE BEDSIDE TO PREVENT THE PT FROM GETTING OUT OF BED OR PULLING OUT THE DOBHOFF WITHOUT STAFF ASSISTANCE. THE PT'S MOM WAS AT THE BEDSIDE MOST OF THIS SHIFT WELL. CALL LIGHT IN REACH WILL CONTINUE TO MONITOR UNTIL REPORT IS GIVEN TO ONCOMING RN.
[2023-11-24] VITALS (23 sets, daily range): BP systolic 115–146; BP diastolic 71–97
[2023-11-24 03:47] LABS: Hematocrit 29.3 % (33.0-51.0); Hemoglobin 9.6 g/dL (11.5-16.0); Mean Corpuscular HGB 28.5 pg (26.0-34.0); Mean Corpuscular HGB Conc 32.8 g/dL (31.5-36.5); Mean Corpuscular Volume 87 fL (80-100); Mean Platelet Volume 8.5 fL (9.1-12.4); Platelet Count 444 K/mm3 (150-400); RDW Coefficient Variation 12.4 % (11.7-14.2); RDW Standard Deviation 39.7 fL (35.1-46.3); Red Blood Cell Count 3.37 M/mm3 (3.80-5.20); White Blood Cell Count 10.93 K/mm3 (4.00-11.30)
[2023-11-24 04:05] LABS: Bun/Creatinine Ratio 22.1 (12.0-20.0); Calcium, Blood 8.6 mg/dL (8.5-10.1); Creatinine, Blood 0.59 mg/dL (0.40-1.00); Magnesium, Blood 2.2 mg/dL (1.6-2.4); Phosphorus, Blood 5.2 mg/dL (2.5-4.9)
--- NOTE | 2023-11-24 06:11 | NUR ---
SHIFT SUMMARY ASSUMED CARE OF PT AT 1900. PT IS A/OX4. HEART SOUNDS REGULAR. LUNG SOUNDS HAVE CRACKLES AT BASES. PT WAS ON AIRVO AT START OF SHIFT. PT HAD LOTS OF ORAL SECRETIONS, CLEAR MUCUS. WHEN PT GOT UP TO BSC, PT BECAME NEASEOUS AND VOMITED CLEAR FLUID. PT GOT BACK INTO BED AND VOMITED SMALL AMOUNT OF YELLOW FLUID. MEDICATED PER EMAR. PT EFLT BETTER AND RESTED. THEN PT WORK OF BREATHING INCREASED AND PT HAD TO BE PLACED ON BIPAP. PT WORE BIPAP T/O THE NOC. PT ATTEMPTED TO TAKE OFF MASK AND AIRVO MULTIPLE TIMES DURING THE NOC. PT HAD TO BE REDIRECTED. PT HAD LOOSE WATERY BM T/O THE NOC. PT FLOEY DRAINING DARK JUSTYNA URINE. PT HAS A VERY RED EXCORIATED MELISSA AREA, CREAM APPLED. PT WAS A 1P SBA TO BSC.
--- NOTE | 2023-11-24 09:24 | NUR ---
AM NOTE... ASSUMED CARE OF PT AT 0700. PT IS A&Ox4. SHE IS IN SR IN THE 70'S-80'S BP IS STABLE. SHE WAS ON BIPAP MOST OF THE NIGHT, THIS WAS CHANGED TO AIRVO AT 50L AND 45% PER RT NOT BECAUSE HER O2 SATS WERE DROPPING. BP IS STABLE WITH MAPS >70. DOBHOFF IN PLACE 60 AT THE RIGHT NARE. TUBE FEEDS WERE STOPPED D/T THE PT C/O OF NAUSEA, PT WAS MEDICATED PER EMAR WITH ZOFRAN. SHE WAS UP TO THE BSC FOR A LIQUID BROWN STOOL AND GIVEN IMMODIUM PER EMAR. PT CONTINUES TO HAVE ORAL SECRETIONS DRIP FROM HER MOUTH INSTEAD OF SWALLOWING OR SPITTING IT OUT. WHEN THIS RN ASKED THE PT WHY SHE WAS DOING THIS SHE SAID "BECAUSE I CAN." PER THE PT'S MOM THE PT HAS NEVER HAD AN ISSUE WITH ORAL SECRETIONS BEFORE. WILL CONTINUE TO MONITOR.
--- NOTE | 2023-11-24 18:39 | NUR ---
SHIFT SUMMARY... NO ACUTE NEGATIVE CHANGES NOTED THIS SHIFT. PT'S VS HAVE BEEN STABLE. PT WAS UP IN THE CHAIR FOR SEVERAL HOURS THIS AM. SHE HAS BEEN ON THE AIRVO MOST OF THIS SHIFT AT 50L AND 60-70%. PT HAS REQUESTED FOOD AND DID WELL WITH A TURKEY SANDWICH AND SOME YOGURT. THE PT HAS DONE WELL WALKING TO THE TOILET AND AROUND THE ROOM WITH ENCOURAGEMENT. CALL LIGHT IN REACH WILL CONTINUE TO MONITOR UNTIL REPORT IS GIVEN TO ONCOMING RN.
--- NOTE | 2023-11-24 19:45 | NUR ---
ASSUMPTION OF CARE PATIENT SITTING UP IN BED WITH EYES CLOSED. OPEN EYES AND CONVERSES WITH THIS RN WHILE IN ROOM. 1:1 SITTER AT BEDSIDE. PATIENT ANSWERING QUESTIONS APPROPRIATELY. AIRVO IN PLACE, 55L 60% FIO2, SPO2 >95%, RR MID 20s. ON CONTINUOUS MONITOR, SINUS RHYTHM 66. DOBHOFF IN PLACE, INFUSING TUBE FEED PER ORDER. PATIENT WITH TOWEL ON CHEST D/T DROOLING, PATIENT WIPING MOUTH INDEPDENDENTLY. DIAMOND IN PLACE DRAINING CLEAR YELLOW URINE TO GRAVITY. DENIES NEEDS AT THIS TIME. BED IN LOW POSITION, CALL LIGHT IN REACH.
--- NOTE | 2023-11-24 22:23 | NUR ---
UPDATE PATIENT IS REQUESTING TO EAT/DRINK FLUIDS. PATIENT ABLE TO TOLERATE EATING DURING DAY SHIFT. PATIENT ALSO TOLERATED 2100 PO MEDICATIONS WITH APPLESAUCE. CALL PLACED TO HOSPITALIST. ORDER RECIEVED TO DC DOBHOFF AND TUBE FEEDS AT THIS TIME.
[2023-11-25] VITALS (20 sets, daily range): BP systolic 113–145; BP diastolic 74–103
[2023-11-25 03:59] LABS: Hemoglobin 9.4 g/dL (11.5-16.0); Mean Corpuscular HGB 28.1 pg (26.0-34.0); Mean Corpuscular HGB Conc 32.4 g/dL (31.5-36.5); Mean Corpuscular Volume 87 fL (80-100); Mean Platelet Volume 8.3 fL (9.1-12.4); NRBC ABSOLUTE 0.02 K/mm3 (0.00-0.02); NRBC Auto 0.2 /100 WBC (0.0-0.2); Platelet Count 447 K/mm3 (150-400); RDW Coefficient Variation 12.4 % (11.7-14.2); RDW Standard Deviation 39.3 fL (35.1-46.3); Red Blood Cell Count 3.35 M/mm3 (3.80-5.20); White Blood Cell Count 9.42 K/mm3 (4.00-11.30)
[2023-11-25 04:16] LABS: Bun/Creatinine Ratio 18.5 (12.0-20.0); Calcium, Blood 8.6 mg/dL (8.5-10.1); Creatinine, Blood 0.65 mg/dL (0.40-1.00); Potassium, Blood 3.9 mmol/L (3.5-5.5)
--- NOTE | 2023-11-25 06:36 | NUR ---
SHIFT SUMMARY PATIENT ALERT, ORIENTED x4, Hx DEV. DELAY BUT ANSWERING QUESTIONS APPROPRIATELY. REQUIRING ENCOURAGEMENT TO PARTICIPATE IN CARE. 1:1 SITER AT BEDSIDE DURING THE NIGHT. BP STABLE. ON CONTINUOUS MONITOR READING SINUS RHYTHM 70s DURING THE NIGHT. ON AIRVO 55L/65% FIO2, SPO2 >90%, PATIENT WILL DESAT AT TIMES WHEN SHE TAKES O2 OUT OF NOSE. PATIENT UP TO BEDSIDE COMMODE FREQUENTLY DURING THE NIGHT WITH DIARRHEA, PRN IMMODIUM GIVEN PER EMAR. DIAMOND IN PLACE DRAINING DARK YELLOW URINE TO GRAVITY. DOBHOFF REMOVED THIS SHIFT, SEE PREVIOUS NOTE. CALL FROM INFECTION CONTROL THIS AM, PATIENT OUT OF ISOLATION. NO OTHER ACUTE CHANGES DURING THE NIGHT, WILL REPORT TO DAY SHIFT RN.
--- NOTE | 2023-11-25 07:30 | NUR ---
ASSUMED CARE: PT SITTING UP IN BED, SITTER AT BEDSIDE. AIRVO IN PLACE AT 60L, 55% FIO2. AWAKE, TALKING TO STAFF. NSR ON TELE. NO ACUTE NEEDS AT THIS TIME.
--- NOTE | 2023-11-25 11:33 | NUR ---
CALL TO DR STANLEY TO RELAY PT'S STATUS. PT REMAINS ON AIRVO BUT HAS BEEN TITRATED TO 50L AND 61% FIO2. DIAMOND REMOVED DUE TO AMBULATING TO BSC. PT'S MOTHER AT BEDSIDE AND STATUS DISCUSSED WITH HER. SITTER REMAINS AT BEDSIDE AT THIS TIME.
--- NOTE | 2023-11-25 16:04 | NUR ---
DR STANLEY CAME TO ROUND ON PT. DISCUSSED PT'S CASE WITH HER MOTHER. MADE AWARE OF SMALL AMOUNT OF BLOOD IN URINE AFTER DIAMOND REMOVAL BUT PT IS VOIDING WELL. ALSO NOTIFIED THAT PT IS DROOLING AND PT'S MOTHER STATES THIS IS NEW FOR HER. ALSO PLACED ORDERS FOR PHYSICAL THERAPY
--- NOTE | 2023-11-25 16:06 | NUR ---
PT'S MOTHER TOOK PT'S GET WELL SOON CARD AND TEAL COLORED STUFFED ANIMAL WITH HER SHE LEFT
--- NOTE | 2023-11-25 18:37 | NUR ---
SHIFT SUMMARY: PT REMAINS ON AIRVO AT 45L, 55% FIO2. NSR ON TELE. SITTER REMAINS AT BEDSIDE. PT AMBULATED TO RESTROOM FREQUENTLY AND IS STILL HAVING DIARRHEA AND SOME BLOOD IN URINE. CALL LIGHT IN REACH. MOTHER WAS AT BEDSIDE MOST OF THE SHIFT
--- NOTE | 2023-11-25 22:54 | NUR ---
ASSUMED CARE CARE WAS ASSUMED OF PT AT 1900, REPORT GIVEN BY FABRIZIO DENG. PT A/O X4, ABLE TO ANSWER QUESTIONS APPROPRIATELY AND USE THE CALL LIGHT FOR APPROPRIATELY. 1:1 SITTER PRESENT FOR REDIRECTING PT TO KEEP HIGH-FLOW N/C. PT EASILY REDIRECTABLE. HEATED HIGH-FLOW N/C 45 LPM, Fi02 55%. PT TOLERATES WELL, O2 SATS > 95%. PT OCCASIONALLY TAKES IT OFF TO BLOW NOSE. PT DROOLING, COMPLAINS OF A SORE THROAT. NO REDNESS OR SWELLING NOTED, NOTIFIED HOSPITALIST AND ORDERED HURRICANE SPRAY FOR PT. CARDIAC MONITORING REFLECTS NSR, HR 70s AT THIS TIME. SBP 130s. PT AFEBRILE. PT CONT/INCONT. OF URINE. PT TOLERATES PO INTAKE.
[2023-11-26] VITALS: BP 117/79
[2023-11-26 03:46] LABS: Hematocrit 28.8 % (33.0-51.0); Hemoglobin 9.3 g/dL (11.5-16.0); Mean Corpuscular HGB 28.1 pg (26.0-34.0); Mean Corpuscular HGB Conc 32.3 g/dL (31.5-36.5); Mean Corpuscular Volume 87 fL (80-100); Mean Platelet Volume 8.3 fL (9.1-12.4); NRBC ABSOLUTE 0.02 K/mm3 (0.00-0.02); NRBC Auto 0.2 /100 WBC (0.0-0.2); Platelet Count 495 K/mm3 (150-400); RDW Coefficient Variation 12.2 % (11.7-14.2); RDW Standard Deviation 39.2 fL (35.1-46.3); Red Blood Cell Count 3.31 M/mm3 (3.80-5.20); White Blood Cell Count 10.88 K/mm3 (4.00-11.30)
[2023-11-26 04:31] VITALS: BP 157/108
[2023-11-26 05:09] VITALS: BP 128/86
--- NOTE | 2023-11-26 05:26 | NUR ---
SHIFT SUMMARY PT REMAINS A/O X4. PT HAS BEEN USING THE CALL LIGHT APPROPRIATELY AND MAKING NEEDS KNOWN. PT SBA TO BATHROOM. PT REMAINS ON HEATED-HUMIDIFIED HIGH-FLOW N/C 45 LPM, 55%. PT TOLERATING WELL, WILL TAKE OFF OCCASIONALLY TO BLOW NOSE BUT IS REDIRECTABLE WITH PUTTING THE N/C BACK ON. O2 SATS > 95%. CARDIAC MONITORING REFLECTS NSR, HR 60s-70s. SBP 110s-120s. PT URINATING FREQUENTLY, CONT./INCONT. PUREWICK IN PLACE. PIV TO KISHAN SL. PT TOLERATING PT INTAKE. MEDS WHOLE WITH APPLESAUCE.
[2023-11-26 06:02] LABS: Bun/Creatinine Ratio 19.7 (12.0-20.0); Calcium, Blood 8.9 mg/dL (8.5-10.1); Creatinine, Blood 0.66 mg/dL (0.40-1.00); Potassium, Blood 3.9 mmol/L (3.5-5.5)
--- NOTE | 2023-11-26 08:30 | NUR ---
SHIFT ASSESSMENT ASSUMED CARE OF PT @ 0700, BEDSIDE REPORT RECEIVED FROM [facility] NURSE. PT ALERT AND ORIENTED TO BASELINE, FOLLOWING COMMANDS, AMBULATES WITH SBA. ON AIRVO, SATS >90%. NSR ON THE MONITOR. PUREWICK IN PLACE, PT TOLERATING WELL. PT USING CALL LIGHT APPROXIMATELY EVERY 5-10 MINUTES, SEEMS TO BE LONELY, NO SITTER. MOTHER TO COME BY THIS AM.
[2023-11-26 08:53] VITALS: BP 129/87
[2023-11-26 10:19] LABS: Percent Saturation 17.8 % (15.0-50.0)
--- NOTE | 2023-11-26 17:12 | NUR ---
Spiritual Care Visit. This visit began when the Pt. while in her recliner called out to this cyber defense analyst and said HI! My visit began by facilitating a life review and establishing rapport. Pt. is joyfully pleasant and her mom is at bedside. Listen with interest, and empathy. Pt. displayed evidence of being devlopmentally delayed, but presented with a joyful and hopeful countenance. Prayed with Pt. Pt. verbalized grattitude for the spiritual care visit, and welcomed this cyber defense analyst to return.
--- NOTE | 2023-11-26 18:19 | NUR ---
SHIFT SUMMARY PT A&O TO BASELINE, FOLLOWING COMMANDS, AMBULATING WITH SBA TO BEDSIDE COMMODE. UP IN CHAIR FOR MOST OF THE DAY. WORKED WITH PHYSICAL THERAPY, DID WELL. PT STATES "I FEEL MUCH BETTER". ON 1.5LPM VIA NC c SATS >90%. c NO DYSPNEA UPON EXERTION. NOW MEDICAL STATUS.
[2023-11-26 20:19] VITALS: BP 147/93
--- NOTE | 2023-11-26 21:00 | NUR ---
PT WAS TRANSFERRED TO ROOM 352 VIA WHEELCHAIR W/OXYGEN IN PLACE AND MEDICATIONS TAPED TO CHART BY HARRIETT DENG. PT WAS IN NO DISTRESS AT TIME OF TRANSFER. REPORT WAS GIVEN MEHRDAD HEATH RN.
[2023-11-27 02:01] LABS: Source, Urine Clean Catch
[2023-11-27 02:13] LABS: Bilirubin, Urine Neg (Neg); Blood, Urine 4+ (Neg); Glucose Qualitative, Urine Neg (Neg); Ketones, Urine Neg (Neg); Leukocyte Esterase, Urine Neg (Neg); Nitrite, Urine Neg (Neg); Protein, Urine 2+ (Neg); Urobilinogen, Urine NORM (Normal)
[2023-11-27 02:30] LABS: Appearance, Urine Clear (Clear); Color, Urine Yellow (P-Yellow)
[2023-11-27 02:33] LABS: Bacteria Mod /hpf; Squamous Epithelial Cells Few /hpf (Few)
[2023-11-27 03:23] VITALS: BP 120/82
--- NOTE | 2023-11-27 04:55 | NUR ---
PATIENT CAME IN LAST NIGHT AT 21:30 VIA WHEELCHAIR. SHE IS ALERT AND ORIENTED WITH PIV LINE AT RIGHT UPPER ARM PATENT AND INTACT. HOOKED ON OXYGEN AT 1.5 LPM/NASAL CANNULA. SHE IS INCONTINENT ON BLADDER; URINE SAMPLE SENT TO LABORATORY. SHE KEPT ON REMOVING HER NASAL CANNULA, CONSTANTLY REMINDING HER OF IT'S USE. SITTER ARRIVED AND STAYED INSIDE THE PATIENT'S ROOM. NOTED A PERINEAL AREA RASH. PATIENT WAS ABLE TO TALK TO HER MOTHER. NEEDS ATTENDED. CALL LIGHT WITHIN HER REACH. WILL CONTINUE TO MONITOR.
[2023-11-27 07:30] VITALS: BP 125/88
[2023-11-27 17:17] VITALS: BP 120/83
--- NOTE | 2023-11-27 18:30 | NUR ---
SHIFT SUMMARY PT IN RECLINER THROUGH THE DAY. UP TO BATHROOM INDEPENDENTLY. SITTER AT BEDSIDE MONITERING PT TO KEEP HER O2 ON. WAS ABLE TO DECREASE O2 TO 1L/M BY NC. ATTEMPTED TO REMOVE BUT SATS WOULD DROP TO 86% AT TIMES BUT GO BACK UP TO 95%. NO RESP DISTRESS NOTED BUT DOES TAKE VERY SHALLOW BREATHS. ENCOURAGED FLUID INTAKE BUT SHE WOULD ONLY TAKE A FEW SMALL SIPS AT A TIME. SLEEPING MOST OF THE DAY.
[2023-11-27 19:26] VITALS: BP 99/66
--- NOTE | 2023-11-28 05:30 | NUR ---
PATIENT IS ALERT AND ORIENTED X2, ON CONTINUOUS BIOX, HOOKED ON OXYGEN AT 1 LPM/NASAL CANNULA. WITH PIV ON RIGHT UPPER ARM. ASSISTED PATIENT TO THE BATHROOM. ASSISTED TRANSFERRING PATIENT FROM BED TO RECLINER CHAIR AND BACK TO BED. CONSTANTLY REMINDING PATIENT NOT TO REMOVE HER NASAL CANNULA. WITH SITTER INSIDE THE ROOM. NEEDS ATTENDED. CALL LIGHT WITHIN PATIENT'S REACH. WILL CONTINUE TO MONITOR.
[2023-11-28 06:02] VITALS: BP 100/60
[2023-11-28 08:02] VITALS: BP 113/73
--- NOTE | 2023-11-28 12:46 | NUR ---
Spiritual Care Visit. Pt. is standing up and currently being seen by the Speech Therapist when I visit her room. Facilitated a short greeting, and then dismissed myself to allow for uninterrupted speech tharapy. The Pt. verbalized that they anticipate being discharged today, and expressed gratitude for the spiritual care visit.
[2023-11-28] MEDS ORDERED: MULVITA PO (14:04)
[2023-11-28] MEDS ORDERED: FERSU300 PO (14:04)
--- NOTE | 2023-11-28 14:36 | NUR ---
Spiritual Care at discharge. Pt. is standing up and visibly excited to be discharged home. Nurses cam and removed her IV ports. Pts. mother is present and verbalized gratitude once again for both the medical care and spiritual care for the Pt.
--- NOTE | 2023-11-28 16:09 | NUR ---
DISCHARGE INSTRUCTIONS COMPLETED AND DISCUSSED WITH PTS MOTHER EXPRESSING UNDERSTANDING OF NEW MED ORDERS. [facility] [employer] [facility] PT LIVES AT. TO [place] VIA W/C.
== END 2023-11-28 14:57 | disposition home or self-care (01) | DRG 193 ==
LOC: ER 15:59 → ICUE 18:23 → MEDS 18:23 → ICUE 11-18 17:15 → MEDS 11-26 21:24 → ENPENDDIS 11-28 13:00 → MEDS 11-28 14:57
PROVIDERS: Emergency Medicine; Internal Medicine; Internal Medicine Critical Care Medicine; Nurse Practitioner Acute Care; ADMIT Internal Medicine
PROC: HZ2ZZZZ Detoxification Services for Substance Abuse Treatment (ICD-10-PCS; 2023-11-17)
PROC: 5A0935A Assistance with Respiratory Ventilation, Less than 24 Consecutive Hours, High Flow/Velocity Cannula (ICD-10-PCS; principal; 2023-11-18)
PROC: 5A09557 Assistance with Respiratory Ventilation, Greater than 96 Consecutive Hours, Continuous Positive Airway Pressure (ICD-10-PCS; 2023-11-18)
PROC: 0DH67UZ Insertion of Feeding Device into Stomach, Via Natural or Artificial Opening (ICD-10-PCS; 2023-11-18)
PROC: 0T9B70Z Drainage of Bladder with Drainage Device, Via Natural or Artificial Opening (ICD-10-PCS; 2023-11-18)
PROC: 4A033R1 Measurement of Arterial Saturation, Peripheral, Percutaneous Approach (ICD-10-PCS; 2023-11-18)
DX: J15.9 Unspecified bacterial pneumonia (principal); J96.01 Acute respiratory failure with hypoxia; N17.9 Acute kidney failure, unspecified; J10.08 Influenza due to other identified influenza virus with other specified pneumonia; F41.9 Anxiety disorder, unspecified; D64.9 Anemia, unspecified; F88 Other disorders of psychological development; F32.9 Major depressive disorder, single episode, unspecified; I10 Essential (primary) hypertension; Z11.52 Encounter for screening for COVID-19; Z90.710 Acquired absence of both cervix and uterus; Z79.899 Other long term (current) drug therapy; B96.89 Other specified bacterial agents as the cause of diseases classified elsewhere; R50.9 Fever, unspecified; R00.0 Tachycardia, unspecified; R91.8 Other nonspecific abnormal finding of lung field
CPT/HCPCS: 0202U; 36415; 36600; 51703; 71045; 71046; 71260; 80048; 80053; 80069; 80202; 81001; 82728; 82803; 82947; 83540; 83550; 83605; 83735; 84100; 84145; 85025; 85027; 87040; 87086; 87633; 92610; 93306; 94640; 94660; 94664; 94667; 94668; 94760; 94762; 96360; 96361; 97110; 97116; 97162; 97530; 99285-25; A9270; J0456; J0696; J1644; J1940; J2060; J2405; J3370; J3480; J7030; J7050; Q9967

== ENCOUNTER → 2023-11-17 | Outpatient (CLI) | payer OTHER ==
[~2023-11-17] MED LIST changes: +ABILIFY MYCITE10 M2 PO; +ABILIFY MYCITE5 M2 PO; +DIVA250EC PO; +DIVA500EC PO; +DOCU100 PO; +ESTRADIOL1 MG PO; +Gas Relief80 MG PO; +IBUP100S PO; +IBUP800 PO; +MIRT15ST PO; +Milk Of Ma400 MG/5 M PO; +Naltrexone HCl50 MG PO; +PROM25 PO; +Percocet 5-3251 EACH PO; +SENN187 PO; +Seroquel Xr50 MG PO; +VALP250 PO
[2023-11-17 11:58] LABS: BASOPHILS ABSOLUTE AUTO 0.02 K/mm3 (0.00-0.23); BASOPHILS PERCENT AUTO 0 % (0-2); EOSINOPHILS ABSOLUTE AUTO 0.01 K/mm3 (0.00-0.68); EOSINOPHILS PERCENT AUTO 0 % (0-6); Hemoglobin 11.6 g/dL (11.5-16.0); IMMATURE GRAN ABSOLUTE AUTO 0.03 K/mm3 (0.00-0.10); IMMATURE GRAN PERCENT AUTO 0 % (0-1); LYMPHOCYTES ABSOLUTE AUTO 0.76 K/mm3 (0.84-5.20); LYMPHOCYTES PERCENT AUTO 10 % (21-46); MONOCYTES ABSOLUTE AUTO 0.44 K/mm3 (0.16-1.47); MONOCYTES PERCENT AUTO 6 % (4-13); Mean Corpuscular HGB 28.6 pg (26.0-34.0); Mean Corpuscular HGB Conc 33.1 g/dL (31.5-36.5); Mean Corpuscular Volume 86 fL (80-100); NEUTROPHILS ABSOLUTE AUTO 6.66 K/mm3 (1.96-9.15); NEUTROPHILS PERCENT AUTO 84 % (41-73); Platelet Count 165 K/mm3 (150-400); RDW Coefficient Variation 12.7 % (11.7-14.2); RDW Standard Deviation 39.9 fL (35.1-46.3); Red Blood Cell Count 4.05 M/mm3 (3.80-5.20); White Blood Cell Count 7.92 K/mm3 (4.00-11.30)
[2023-11-17 12:13] LABS: Albumin, Blood 3.2 g/dL (3.4-5.0); Albumin/Globulin Ratio 0.7 (0.8-1.8); Bilirubin, Total 0.2 mg/dL (0.1-1.0); Calcium, Blood 8.5 mg/dL (8.5-10.1); Creatinine, Blood 1.31 mg/dL (0.40-1.00); Globulin, Blood 4.4 g/dL (2.2-4.0); Potassium, Blood 3.8 mmol/L (3.5-5.5); Total Protein, Blood 7.6 g/dL (6.4-8.2)
== END | disposition home or self-care (01) ==
LOC: LAB SHORT 11:46 → LAB 11:46
PROVIDERS: Physician Assistant Medical
DX: R50.9 Fever, unspecified (principal)
CPT/HCPCS: 80053; 83605; 85025

== ENCOUNTER → 2024-02-26 | Outpatient (CLI) | payer OTHER ==
[~2024-02-26] MED LIST changes: +ABILIFY MYCITE10 M2 PO; +ABILIFY MYCITE5 M2 PO; +DIVA250EC PO; +DIVA500EC PO; +ESTRADIOL1 MG PO; +FERSU300 PO; +MIRT15ST PO; +MULVITA PO; +Naltrexone HCl50 MG PO; +VALP250 PO
== END | disposition home or self-care (01) ==
LOC: LAB 10:05 → LAB SHORT 10:05
DX: R82.90 Unspecified abnormal findings in urine (principal)
CPT/HCPCS: 87086

== ENCOUNTER 2024-10-13 21:54 | Emergency (ER) | payer OTHER ==
[~2024-10-13] VITALS: Ht 162.6 cm; Wt 82.5 kg
[~2024-10-13 21:54] MED LIST changes: -C COMPLEX1000 M1 PO; -CEFP200 PO; -FAMO20 PO; -IPRAT-ALBUT 0.5-3 ML INH; -Zithromax250 MG PO; -[UNRECOGNIZED DRUG - OTHER] PO
[2024-10-14 02:00] VITALS: BP 110/67
[2024-10-14] MEDS ORDERED: Zithromax250 MG PO (02:21)
[2024-10-14] MEDS ORDERED: CEFP200 PO (02:21)
[2024-10-14 02:36] LABS: Influenza A, PCR NEGATIVE (NEGATIVE); Influenza B, PCR NEGATIVE (NEGATIVE); Resp Syncytial Virus, PCR NEGATIVE (NEGATIVE); SARS-Cov-2 (COVID-19) PCR, MMC NEGATIVE (NEGATIVE)
[2024-10-14 02:37] LABS: BASOPHILS ABSOLUTE AUTO 0.04 K/mm3 (0.00-0.23); BASOPHILS PERCENT AUTO 0 % (0-2); EOSINOPHILS ABSOLUTE AUTO 0.04 K/mm3 (0.00-0.68); EOSINOPHILS PERCENT AUTO 0 % (0-6); Hematocrit 34.1 % (33.0-51.0); Hemoglobin 11.6 g/dL (11.5-16.0); IMMATURE GRAN ABSOLUTE AUTO 0.09 K/mm3 (0.00-0.10); IMMATURE GRAN PERCENT AUTO 1 % (0-1); LYMPHOCYTES ABSOLUTE AUTO 1.31 K/mm3 (0.84-5.20); LYMPHOCYTES PERCENT AUTO 14 % (21-46); MONOCYTES ABSOLUTE AUTO 0.83 K/mm3 (0.16-1.47); MONOCYTES PERCENT AUTO 9 % (4-13); Mean Corpuscular HGB 29.1 pg (26.0-34.0); Mean Corpuscular Volume 86 fL (80-100); Mean Platelet Volume 9.2 fL (9.1-12.4); NEUTROPHILS PERCENT AUTO 75 % (41-73); Platelet Count 292 K/mm3 (150-400); RDW Coefficient Variation 12.6 % (11.7-14.2); RDW Standard Deviation 38.7 fL (35.1-46.3); Red Blood Cell Count 3.98 M/mm3 (3.80-5.20); White Blood Cell Count 9.21 K/mm3 (4.00-11.30)
[2024-10-17] MEDS ORDERED: C COMPLEX1000 M1 PO (16:50)
== END 2024-10-14 02:25 | disposition home or self-care (01) ==
LOC: ER 21:54
PROVIDERS: Emergency Medicine
DX: J18.9 Pneumonia, unspecified organism (principal); R62.50 Unspecified lack of expected normal physiological development in childhood; Z79.899 Other long term (current) drug therapy
CPT/HCPCS: 0241U; 71046; 85025; 93005; 93010; 99285-25

== ENCOUNTER → 2024-10-13 | Outpatient (CLI) | payer OTHER ==
[~2024-10-13] MED LIST changes: +C COMPLEX1000 M1 PO; +CEFP200 PO; +FAMO20 PO; +IPRAT-ALBUT 0.5-3 ML INH; +Zithromax250 MG PO; +[UNRECOGNIZED DRUG - OTHER] PO
[2024-10-13 11:59] LABS: BASOPHILS ABSOLUTE AUTO 0.02 K/mm3 (0.00-0.23); BASOPHILS PERCENT AUTO 0 % (0-2); EOSINOPHILS ABSOLUTE AUTO 0.02 K/mm3 (0.00-0.68); EOSINOPHILS PERCENT AUTO 0 % (0-6); Hematocrit 35.7 % (33.0-51.0); Hemoglobin 11.9 g/dL (11.5-16.0); IMMATURE GRAN ABSOLUTE AUTO 0.06 K/mm3 (0.00-0.10); IMMATURE GRAN PERCENT AUTO 1 % (0-1); LYMPHOCYTES ABSOLUTE AUTO 1.24 K/mm3 (0.84-5.20); LYMPHOCYTES PERCENT AUTO 13 % (21-46); MONOCYTES ABSOLUTE AUTO 0.76 K/mm3 (0.16-1.47); MONOCYTES PERCENT AUTO 8 % (4-13); Mean Corpuscular HGB 28.7 pg (26.0-34.0); Mean Corpuscular HGB Conc 33.3 g/dL (31.5-36.5); Mean Corpuscular Volume 86 fL (80-100); Mean Platelet Volume 8.6 fL (9.1-12.4); NEUTROPHILS ABSOLUTE AUTO 7.44 K/mm3 (1.96-9.15); NEUTROPHILS PERCENT AUTO 78 % (41-73); Platelet Count 297 K/mm3 (150-400); RDW Coefficient Variation 12.3 % (11.7-14.2); RDW Standard Deviation 38.6 fL (35.1-46.3); Red Blood Cell Count 4.15 M/mm3 (3.80-5.20); White Blood Cell Count 9.54 K/mm3 (4.00-11.30)
[2024-10-13 12:15] LABS: Albumin, Blood 3.1 g/dL (3.4-5.0); Albumin/Globulin Ratio 0.6 (0.8-1.8); Bilirubin, Total 0.4 mg/dL (0.1-1.0); Bun/Creatinine Ratio 10.4 (12.0-20.0); Calcium, Blood 8.7 mg/dL (8.5-10.1); Creatinine, Blood 1.06 mg/dL (0.40-1.00); Globulin, Blood 5.4 g/dL (2.2-4.0); Potassium, Blood 4.2 mmol/L (3.5-5.5); Total Protein, Blood 8.5 g/dL (6.4-8.2)
== END ==
LOC: LAB SHORT 11:55 → LAB 11:55
PROVIDERS: Physician Assistant Medical
DX: J18.9 Pneumonia, unspecified organism (principal)
CPT/HCPCS: 80053; 84145; 85025

== ENCOUNTER 2024-10-17 10:14 | Inpatient (IN) | payer OTHER ==
[~2024-10-17] VITALS: Ht 162.6 cm; Wt 80.8 kg
[~2024-10-17 10:14] MED LIST changes: +CEFP200 PO; +Zithromax250 MG PO
[2024-10-17] MEDS ORDERED: Ipratropium/Albuterol SulF 2.5-0.5MG/3 ML Amp INH ONE (10:30)
[2024-10-17 10:59] LABS: Hematocrit 33.1 % (33.0-51.0); Hemoglobin 11.7 g/dL (11.5-16.0); Mean Corpuscular HGB 31.4 pg (26.0-34.0); Mean Corpuscular HGB Conc 35.3 g/dL (31.5-36.5); Mean Corpuscular Volume 89 fL (80-100); Mean Platelet Volume 8.4 fL (9.1-12.4); NRBC ABSOLUTE 0.05 K/mm3 (0.00-0.02); NRBC Auto 0.7 /100 WBC (0.0-0.2); Platelet Count 478 K/mm3 (150-400); RDW Coefficient Variation 12.4 % (11.7-14.2); Red Blood Cell Count 3.73 M/mm3 (3.80-5.20); White Blood Cell Count 6.85 K/mm3 (4.00-11.30)
[2024-10-17 11:25] LABS: Albumin, Blood 2.7 g/dL (3.4-5.0); Albumin/Globulin Ratio 0.5 (0.8-1.8); Bilirubin, Total 0.3 mg/dL (0.1-1.0); Bun/Creatinine Ratio 17.2 (12.0-20.0); Calcium, Blood 9.5 mg/dL (8.5-10.1); Creatinine, Blood 0.7 mg/dL (0.40-1.00); Globulin, Blood 5.3 g/dL (2.2-4.0); Potassium, Blood 4.1 mmol/L (3.5-5.5)
[2024-10-17 11:28] LABS: BAND PERCENT MAN 6 % (0-8); BASOPHILS PERCENT MAN 0 % (0-2); EOSINOPHILS ABSOLUTE MAN 0.06 K/mm3 (0.00-0.68); EOSINOPHILS PERCENT MAN 1 % (0-6); LYMPHOCYTES ABSOLUTE MAN 1.02 K/mm3 (0.84-5.20); LYMPHOCYTES PERCENT MAN 15 % (21-46); MONOCYTES ABSOLUTE MAN 0.54 K/mm3 (0.16-1.47); MONOCYTES PERCENT MAN 8 % (4-13); NEUTROPHILS ABSOLUTE MAN 5.06 K/mm3 (1.96-9.15); PLASMA CELL ABSOLUTE MAN 0.13 K/mm3 (0.00-0.00); PLASMA CELLS PERCENT MAN 2 % (0-0); SEG NEUTROPHILS PERCENT MAN 68 % (41-73); TOTAL CELLS COUNTED 100
[2024-10-17] MEDS ORDERED: CefTRIAXone Sodium 1,000 MG in NS 50 ML IV ONE (11:45)
[2024-10-17] MEDS ORDERED: Azithromycin 250 MG in NS 250 ML IV ONE (11:45)
[2024-10-17] MEDS ORDERED: Bisacodyl 10 MG Supp PR PRN (13:45)
[2024-10-17] MEDS ORDERED: NS 1,000 ML IV SCH (13:45)
[2024-10-17] MEDS ORDERED: Ondansetron HCl 2 MG / ML 2ML Vial IV PRN (13:50)
[2024-10-17] MEDS ORDERED: Magnesium Hydroxide Conc 10 ML UDC PO PRN (13:50)
[2024-10-17] MEDS ORDERED: FLU VACC TS2024-25(6MOS UP)/PF 45 MCG/0.5 ML SYRINGE IM SCH (13:50)
[2024-10-17] MEDS ORDERED: Vancomycin HCL 1,750 MG in NS 500 ML IV ONE (14:20)
[2024-10-17] MEDS ORDERED: Ibuprofen 100 MG/5 ML 5ML UDC PO PRN (14:40)
[2024-10-17] MEDS ORDERED: Estradiol 1 MG Tab PO SCH (15:04)
[2024-10-17 15:47] LABS: Adenovirus Not Detected (NOT DETECT); Bordetella pertussis Not Detected (NOT DETECT); Chlamydophila pneumoniae Not Detected (NOT DETECT); Coronavirus 229E Not Detected (NOT DETECT); Coronavirus HKU1 Not Detected (NOT DETECT); Coronavirus NL63 Not Detected (NOT DETECT); Coronavirus OC43 Not Detected (NOT DETECT); Human Metapneumovirus Not Detected (NOT DETECT); Human Rhinovirus/Enterovirus Not Detected (NOT DETECT); Influenza A/2009-H1 Not Detected (NOT DETECT); Influenza A/H1 Not Detected (NOT DETECT); Influenza A/H3 Not Detected (NOT DETECT); Influenza B Not Detected (NOT DETECT); Mycoplasma pneumoniae Not Detected (NOT DETECT); Parainfluenza Virus 1 Not Detected (NOT DETECT); Parainfluenza Virus 2 Not Detected (NOT DETECT); Parainfluenza Virus 3 Not Detected (NOT DETECT); Parainfluenza Virus 4 Not Detected (NOT DETECT); Respiratory Syncytial Virus Not Detected (NOT DETECT); SARS-Cov-2 (COVID-19), BioFire Not Detected (NOT DETECT)
[2024-10-17] MEDS ORDERED: DiphenhydrAMINE HCl 50 MG/ML 1ML Vial IV PRN (16:25)
[2024-10-17 16:43] VITALS: BP 117/82
[2024-10-17] MEDS ORDERED: C COMPLEX1000 M1 PO ×2 (16:50)
[2024-10-17] MEDS ORDERED: Ferrous Sulfate 325 MG Tab PO SCH (17:00)
--- NOTE | 2024-10-17 19:03 | NUR ---
ADMIT NOTE PT ALERT, ORIENTED TO BASELINE, SELF, SITUATION, PERSON. DEV DELAY, MOM IN ROOM. STATES PT HAS A HX OF NEEDING A SITTER D/T PULLING OFF OXYGEN. SP02>90% ON 3L NC. OCC COUGH. CONT PULSE OX IN PLACE. TELEMETRY SHOWS NSR, HR 70'S-80'S. DENIES PAIN. PER REPORT, PT BACK RED AFTER RECEIVING VANCO INFUSION. BENADRYL GIVEN PER MD CINDI NOTIFIED. PT'S MOM REQUESTED TO NOT HAVE VANCO RESTARTED. PT UP TO BATHROOM WITH INCONTINENT DIARRHEA. PT ORIENTED TO ROOM, CALL LIGHT. REST IN BED WATCHING TV. CALL LIGHT IN REACH.
[2024-10-17] MEDS ORDERED: Famotidine 20 MG Tab PO SCH (21:00)
[2024-10-17] MEDS ORDERED: Sennosides 8.6 MG Tab PO SCH (21:00)
[2024-10-17] MEDS ORDERED: ARIPiprazole 10 MG Tab PO SCH (21:00)
[2024-10-17] MEDS ORDERED: Docusate Sodium 100 MG Cap PO SCH (21:00)
[2024-10-17] MEDS ORDERED: Sertraline HCl 100 MG Tab PO SCH (21:00)
[2024-10-17] MEDS ORDERED: ClonazePAM 0.5 MG Tab PO SCH (21:00)
[2024-10-17] MEDS ORDERED: Divalproex Sodium 250 MG TABLET.DR PO SCH (21:00)
[2024-10-17] MEDS ORDERED: Lactobacil 2-S.Thermo-Bifido 1 1 Cap PO SCH (21:00)
[2024-10-17 21:06] VITALS: BP 130/81
[2024-10-17] MEDS ORDERED: Ipratropium/Albuterol SulF 2.5-0.5MG/3 ML Amp INH SCH (21:50)
[2024-10-17] MEDS ORDERED: Albuterol 2.5 MG/3 ML VIAL INH PRN (21:50)
[2024-10-17 23:59] VITALS: BP 104/66
--- NOTE | 2024-10-18 00:26 | NUR ---
ASSUMPTION OF CARE PT IS DIAPHORETIC AND HAS A GENERAL UNWELL APPEARANCE. NEURO: DEVELOPMENTAL DELAY. WHEN RESP[ONDING TO ORIENTATION QUESTIONS PT RESPONDS THEY ARE "SICK", "IN A HOSPITAL", DOESN'T KNOW THE DATE BUT KNOWS KYLIE IS COMING, AND IS ORIENTED TO SELF. PERLLA, EQUAL STRENGTH THROUGHOUT. PT ABLE TO AMBULATE WELL BUT SBA FOR LINE MANAGEMENT. SITTER AT BEDSIDE DUE TO HISTORY OF REMOVING LINES/TUBING. CARDIAC: NSR- SINUS TACH. PULSES PRESENT THROUGHOUT. NO EDEMA. TMAX 100.4- IBUPROFEN GIVEN. LUNGS: FAINT WHEEZE HEARD THROUGHOUT. RESPIRATORY RATES FROM 20-28. SHALLOW. RESPIRATORY AND PROVIDER NOTIFIED. PT IS NOW ON 4L NC WITHOUT MUCH EFFECT ON SATURATION LEVELS. GI/: ACTIVE BOWEL SOUNDS. USING THE BATHROOM TO VOID.
[2024-10-18] MEDS ORDERED: Vancomycin HCL 1,500 MG in NS 250 ML IV SCH (03:00)
[2024-10-18 03:46] LABS: BASOPHILS ABSOLUTE AUTO 0.01 K/mm3 (0.00-0.23); BASOPHILS PERCENT AUTO 0 % (0-2); EOSINOPHILS ABSOLUTE AUTO 0.07 K/mm3 (0.00-0.68); EOSINOPHILS PERCENT AUTO 1 % (0-6); Hematocrit 32.4 % (33.0-51.0); Hemoglobin 10.9 g/dL (11.5-16.0); IMMATURE GRAN ABSOLUTE AUTO 0.12 K/mm3 (0.00-0.10); IMMATURE GRAN PERCENT AUTO 1 % (0-1); LYMPHOCYTES ABSOLUTE AUTO 0.99 K/mm3 (0.84-5.20); LYMPHOCYTES PERCENT AUTO 10 % (21-46); MONOCYTES ABSOLUTE AUTO 0.33 K/mm3 (0.16-1.47); MONOCYTES PERCENT AUTO 4 % (4-13); Mean Corpuscular HGB 30.2 pg (26.0-34.0); Mean Corpuscular HGB Conc 33.6 g/dL (31.5-36.5); Mean Corpuscular Volume 90 fL (80-100); Mean Platelet Volume 8.4 fL (9.1-12.4); NEUTROPHILS PERCENT AUTO 84 % (41-73); NRBC ABSOLUTE 0.02 K/mm3 (0.00-0.02); NRBC Auto 0.2 /100 WBC (0.0-0.2); Platelet Count 432 K/mm3 (150-400); RDW Coefficient Variation 12.5 % (11.7-14.2); RDW Standard Deviation 39.9 fL (35.1-46.3); Red Blood Cell Count 3.61 M/mm3 (3.80-5.20); White Blood Cell Count 9.52 K/mm3 (4.00-11.30)
[2024-10-18 04:01] LABS: Bun/Creatinine Ratio 16.3 (12.0-20.0); Calcium, Blood 8.5 mg/dL (8.5-10.1); Creatinine, Blood 0.68 mg/dL (0.40-1.00); Potassium, Blood 4.1 mmol/L (3.5-5.5)
[2024-10-18 04:51] VITALS: BP 106/71
[2024-10-18 07:27] VITALS: BP 113/77
[2024-10-18] MEDS ORDERED: MethylPREDNISolone Sod Succ 125 MG Vial IV SCH (08:00)
[2024-10-18] MEDS ORDERED: Ascorbic Acid 500 MG Tab PO SCH (09:00)
[2024-10-18] MEDS ORDERED: Naltrexone HCl 50 MG Tab PO SCH (09:00)
[2024-10-18] MEDS ORDERED: LevoFLOXacin 750 MG/D5W 150ML 150 ML IV SCH (09:00)
[2024-10-18] MEDS ORDERED: Multivitamins 1 Tab PO SCH (09:00)
[2024-10-18] MEDS ORDERED: Loratadine 10 MG Tab PO SCH (09:00)
--- NOTE | 2024-10-18 09:54 | NUR ---
AM NOTE: ALERT AND ORIENTED TO SELF, FAMILY AND PLACE. ABLE TO MAKE NEEDS KNOWN. VERY TALKATIVE AND HAPPY. PATIENT DENIES PAINS. STATES SHE DID NOT SLEEP WELL. SITTER AT BEDSIDE TO HELP REMIND PATIENT TO WEAR OXYGEN. TELE SHOWING SR WITH HR 60-80'S. DENIES CHEST PAIN/PRESSURE/PALPITATIONS. NORMAL SALINE INFUSING PER EMAR FOR A TOTAL OF 2 BAGS. 2ND BAG STARTED THIS MORNING. IV ABX INFUSING WELL. NO EDEMA NOTED. DOMINIQUE HOSE STOCKING IN PLACE. PPP. ON 4L NASAL CANNULA AT START OF SHIFT. TITRATED TO 3L BY RESPIRATORY. PATIENT TOLERATED BREATHING TREATMENT WITH MASK. BILATERAL UPPER AND RML WHEEZE, IMPROVED AFTER BREATHING TREATMENT. DENIES SOB AT REST. RESP RATE 20-24 THIS AM. MOIST/LOOSE/CONGESTED COUGH. PATIENT ENCOURAGED AND INSTRUCTED TO USE FLUTTER VALVE AND DEEP COUGHS. BOWEL TONES PRESENT IN ALL 4 QUADRANTS. TOLERATING PO DIET. LOOSE BOWEL MOVEMENT THIS AM. DENIES ABDOMINAL PAIN/NAUSEA. SKIN C/D/I. THIS RN SPOKE WITH PATIENT ENA ROMERO THIS AM AND PROVIDED UPDATE. PATIENT IN RECLINER AT THIS TIME. SITTER REMAINS AT BEDSIDE. CALL LIGHT IN REACH.
[2024-10-18 11:49] VITALS: BP 119/73
[2024-10-18] MEDS ORDERED: CefTRIAXone Sodium 1,000 MG in NS 100 ML IV SCH (12:00)
[2024-10-18 15:26] VITALS: BP 112/67
--- NOTE | 2024-10-18 18:22 | NUR ---
SHIFT SUMMARY: VITAL SIGNS REMAIN STABLE. PATIENT TITRATED TO 2.5L NASAL CANNULA. NO TELE EVENTS, REMAINS SR/ST. TOLERATING PO DIET. LOOSE STOOLS. DENIES PAINS. UP TO RECLINER FOR MEALS. TOLERATING BREATHING TREATMENTS AND USING FLUTTER. IV ABX INFUSED. NS INFUSING AT 125ML/HR (LAST BAG). CALL LIGHT IN REACH. PATIENT SITTING IN BED AT THIS TIME WATCHING TV. BED ALARM IN PLACE.
[2024-10-18 20:59] VITALS: BP 131/75
[2024-10-18 23:57] VITALS: BP 103/59
--- NOTE | 2024-10-18 23:57 | NUR ---
ASSUMPTION OF CARE- NO ACUTE CHANGES- IMPROVING PT REPORTS STILL FEELING UNWELL BUT VISUALLY APPEARS IMPROVED. NEURO: DEVELOPMENTAL DELAY. WHEN RESP[ONDING TO ORIENTATION QUESTIONS PT RESPONDS THEY ARE "SICK", "IN A HOSPITAL", DOESN'T KNOW THE DATE BUT KNOWS KYLIE IS COMING, AND IS ORIENTED TO SELF. PERLLA, EQUAL STRENGTH THROUGHOUT. PT ABLE TO AMBULATE WELL BUT SBA FOR LINE MANAGEMENT. CARDIAC: NSR- SINUS TACH. PULSES PRESENT THROUGHOUT. NO EDEMA. AFEBRILE. IBUPROFEN GIVEN. LUNGS: WHEEZING STILL PRESENT BUT IMPROVED FROM LAST NIGHT. RESPIRATORY RATES FROM 20-24. SHALLOW. GI/: ACTIVE BOWEL SOUNDS. USING THE BATHROOM TO VOID. BOWEL MEDS HELD TONIGHT WELL DUE TO CONTINUED LOOSE STOOLS.
[2024-10-19 04:41] VITALS: BP 135/91
[2024-10-19 07:15] VITALS: BP 132/82
--- NOTE | 2024-10-19 07:46 | NUR ---
AM NOTE: PATIENT ALERT TO SELF, PLACE, FAMILY AND THAT SHE IS SICK. NOT ABLE TO TELL ME DETAILS. VERY HAPPY AND SMILEY BUT STATES "I AM SICK". PERRLA, WEARING GLASSES. DENIES PAINS. EQUAL STRENGTH THROUGHOUT. UP WITH SBA FOR SAFETY. BED ALARM IN PLACE. TELE SHOWING SR WITH HR 60-80'S. DENIES CHEST PAIN/PRESSURE/PALPITATIONS. NO EDEMA NOTED. PPP. SBP 130'S. IV SALINE LOCKED. ON 1L NASAL CANNULA THIS AM SATING 92-95%. RESPIRATORY IN AND BREATHING TREATMENT GIVEN. LUNGS SOUNDS WHEEZY AND COARSE. CONGESTED COUGH. USING FLUTTER AT BEDSIDE WITH ENCOURAGEMENT. RR 18-22. SOB WHEN UP WALKING TO BATHROOM. BOWEL TONES PRESENT. TOLERATING PO DIET. STATES "I DON'T LIKE WATER". THIS RN ENCOURAGED PO INTAKE OF WATER. ATTENDS IN PLACE. CONTINUES TO HAVE LOOSE BOWEL MOVEMENTS. SKIN OVERALL PALE BUT C/D/I. CALL LIGHT IN REACH. BED ALARM IN PLACE. PATIENT SITTING IN BED AT THIS TIME EATING BREAKFAST.
--- NOTE | 2024-10-19 10:24 | NUR ---
DR. RAMOS AT BEDSIDE, THIS RN PRESENT FOR MD ROUNDING. PLAN FOR SPEECH THERAPY EVAL TO ASSESS SWALLOW. THIS RN PLACED CALL TO PATIENT MOM HEATHER TO UPDATE ON PLAN. MD TO CALL HEATHER WELL. MEDICAL STATUS NO TELE. PATIENT SITTING IN RECLINER AT THIS TIME WATCHING TV. CALL LIGHT IN REACH.
[2024-10-19 11:25] VITALS: BP 115/69
--- NOTE | 2024-10-19 14:24 | NUR ---
SPEECH THERAPY IN ROOM AT THIS TIME.
[2024-10-19 16:15] VITALS: BP 119/67
--- NOTE | 2024-10-19 18:15 | NUR ---
NO ACUTE CHANGES. PATIENT TITRATED TO ROOM AIR AND SATING 92-95%. TOLERATING BREATHING TREATMENTS WELL. MEDICAL STATUS NO TELE. CONTINUES TO DENY PAIN BUT STATES "IM STILL SICK" WHEN ASKING HOW SHE IS FEELING. MULTIPLE LOOSE BOWEL MOVEMENTS THIS SHIFT. SHOWER X2 THIS SHIFT. IV ABX INFUSED. SPEECH THERAPY IN, SEE ORDERS. PLAN FOR SWALLOW STUDY TOMORROW. MOM AT BEDSIDE THROUGHOUT SHIFT AND UPDATED ON PLAN OF CARE. PATIENT SITTING IN RECLINER AT THIS TIME WATCHING TV. DENIES NEEDS.
[2024-10-19 20:33] VITALS: BP 141/83
--- NOTE | 2024-10-19 20:54 | NUR ---
START OF SHIFT THIS RN ASSUMED CARE AT APPROXIMATELY 1900. PT RESTING IN BED WATCHING TV. PT HAS NO COMPLAINTS OR CONCERNS AT THIS TIME. THIS RN WILL CONTINUE PLAN OF CARE.
[2024-10-20 04:15] VITALS: BP 133/89
--- NOTE | 2024-10-20 04:36 | NUR ---
SHIFT SUMMARY PT HAD NO NEW ACUTE EVENTS OVER NIGHT. WILL CONTINUE TO MONITOR.
[2024-10-20 07:46] VITALS: BP 137/89
--- NOTE | 2024-10-20 08:22 | NUR ---
"Spiritual Care Visit | Pt. request Pt. is sitting up in bed and welcomes this visit. While Pt. displays evidence of Developmental delay, she recognizes this clinic assistant from a previous visit. Facilitate an update and life review. Pt. is delightfully pleasant. Prayed for the Pt. Pt. verbalized gratitude for the spiritual care visit. Will remain available to the Pt."
[2024-10-20] MEDS ORDERED: FAMO20 PO (10:00)
[2024-10-20] MEDS ORDERED: IPRAT-ALBUT 0.5-3 ML INH (10:01)
[2024-10-20] MEDS ORDERED: SENN187 PO (10:02)
--- NOTE | 2024-10-20 13:48 | NUR ---
UPDATE DISCHARGE INSTRUCTIONS PROVIDED TO PT'S MOTHER. IV REMOVED AND INTACT. ALL QUESTIONS ANSWERED. PT REFUSED WC RIDE OUT AND WALKED.
[2024-10-21] MEDS ORDERED: IBUP200 PO ×2 (22:40)
[2024-10-21] MEDS ORDERED: [UNRECOGNIZED DRUG - OTHER] PO ×2 (23:49)
[2024-10-21] MEDS ORDERED: C COMPLEX1000 M1 PO (23:52)
== END 2024-10-20 13:48 | disposition home or self-care (01) | DRG 205 ==
LOC: ER 10:14 → PCU 13:42
PROVIDERS: Emergency Medicine; ADMIT Hospitalist
DX: J98.4 Other disorders of lung (principal); J96.01 Acute respiratory failure with hypoxia; F41.9 Anxiety disorder, unspecified; F32.A Depression, unspecified; M41.9 Scoliosis, unspecified; R62.50 Unspecified lack of expected normal physiological development in childhood; E78.1 Pure hyperglyceridemia; D64.9 Anemia, unspecified; R79.89 Other specified abnormal findings of blood chemistry; J18.1 Lobar pneumonia, unspecified organism; R59.0 Localized enlarged lymph nodes; Z90.710 Acquired absence of both cervix and uterus; Z79.899 Other long term (current) drug therapy; Z79.2 Long term (current) use of antibiotics; Z90.722 Acquired absence of ovaries, bilateral; Z86.19 Personal history of other infectious and parasitic diseases
CPT/HCPCS: 0202U; 36415; 71045; 71260; 74230; 80048; 80053; 83605; 85025; 85379; 92610; 92611; 94640; 94664; 94762; 96365; 96375; 99285-25; A9270; J0456; J0696; J1200; J1956; J2919; J3370; J7030; J7040; J7050; Q9967

== ENCOUNTER 2024-10-21 18:53 | Observation (INO) | payer OTHER ==
[~2024-10-21] VITALS: Ht 160 cm; Wt 82.1 kg
[~2024-10-21 18:53] MED LIST changes: +C COMPLEX1000 M1 PO; +FAMO20 PO; +IPRAT-ALBUT 0.5-3 ML INH
[2024-10-21 19:33] LABS: BASOPHILS ABSOLUTE AUTO 0.04 K/mm3 (0.00-0.23); BASOPHILS PERCENT AUTO 0 % (0-2); EOSINOPHILS ABSOLUTE AUTO 0.13 K/mm3 (0.00-0.68); EOSINOPHILS PERCENT AUTO 1 % (0-6); Hemoglobin 12.9 g/dL (11.5-16.0); IMMATURE GRAN ABSOLUTE AUTO 0.28 K/mm3 (0.00-0.10); IMMATURE GRAN PERCENT AUTO 3 % (0-1); LYMPHOCYTES ABSOLUTE AUTO 2.42 K/mm3 (0.84-5.20); LYMPHOCYTES PERCENT AUTO 23 % (21-46); MONOCYTES PERCENT AUTO 6 % (4-13); Mean Corpuscular HGB 31.8 pg (26.0-34.0); Mean Corpuscular HGB Conc 34.9 g/dL (31.5-36.5); Mean Corpuscular Volume 91 fL (80-100); Mean Platelet Volume 8.1 fL (9.1-12.4); NEUTROPHILS ABSOLUTE AUTO 7.14 K/mm3 (1.96-9.15); NEUTROPHILS PERCENT AUTO 67 % (41-73); NRBC ABSOLUTE 0.27 K/mm3 (0.00-0.02); NRBC Auto 2.5 /100 WBC (0.0-0.2); Platelet Count 503 K/mm3 (150-400); RDW Coefficient Variation 12.7 % (11.7-14.2); RDW Standard Deviation 40.4 fL (35.1-46.3); Red Blood Cell Count 4.06 M/mm3 (3.80-5.20); White Blood Cell Count 10.61 K/mm3 (4.00-11.30)
[2024-10-21] MEDS ORDERED: CefTRIAXone Sodium 1,000 MG in NS 100 ML IV ONE (20:15)
[2024-10-21] MEDS ORDERED: Doxycycline Hyclate 100 MG in Dextrose 5% 250 ML IV ONE (20:15)
[2024-10-21] MEDS ORDERED: LORazepam 2 MG/ML 1ML Injection IV ONE (20:20)
[2024-10-21 20:24] LABS: Influenza A, PCR NEGATIVE (NEGATIVE); Influenza B, PCR NEGATIVE (NEGATIVE); Resp Syncytial Virus, PCR NEGATIVE (NEGATIVE); SARS-Cov-2 (COVID-19) PCR, MMC NEGATIVE (NEGATIVE)
[2024-10-21 20:47] LABS: Bun/Creatinine Ratio 27.7 (12.0-20.0); Calcium, Blood 9.1 mg/dL (8.5-10.1); Creatinine, Blood 0.72 mg/dL (0.40-1.00)
[2024-10-21] MEDS ORDERED: Ipratropium/Albuterol SulF 2.5-0.5MG/3 ML Amp INH SCH (21:35)
[2024-10-21] MEDS ORDERED: Albuterol 2.5 MG/3 ML VIAL INH PRN (21:35)
[2024-10-21] MEDS ORDERED: FLU VACC TS2024-25(6MOS UP)/PF 45 MCG/0.5 ML SYRINGE IM ONE (21:40)
[2024-10-21] MEDS ORDERED: IBUP200 PO ×2 (22:40)
[2024-10-21 23:47] VITALS: BP 123/88
[2024-10-21] MEDS ORDERED: [UNRECOGNIZED DRUG - OTHER] PO ×2 (23:49)
[2024-10-21] MEDS ORDERED: C COMPLEX1000 M1 PO (23:52)
--- NOTE | 2024-10-22 00:49 | NUR ---
0030 PT ARRIVED TO ROOM FROM ER IN STABLE CONDITION. DENIES SOB, ON 2L NC AT 95%. PRODUCTIVE COUGH, SPUTUM NOT SEEN YET. NO OTHER APPARENT SIGNS OF DISTRESS. CALL LIGHT IS IN REACH.
--- NOTE | 2024-10-22 05:00 | NUR ---
0200 PT LYING IN BED, EYES CLOSED, APPEARS TO BE RESTING. BREATHING IS EVEN, UNLABORED. NO APPARENT SIGNS OF DISTRESS. CALL LIGHT IS IN REACH.
[2024-10-22 05:01] VITALS: BP 118/72
--- NOTE | 2024-10-22 05:14 | NUR ---
0510 PT HAD SOME CHILLS AFTER USING THE BATHROOM. VSS, BS 88, DENIES ANY DISCOMFORT, DENIES BEING HOT OR COLD. PT IS A LITTLE SWEATY, DECLINES A FRESH GOWN. REQUESTED AND RECIEVED CHOCOLATE PUDDING. WILL CONTINUE TO MONITOR. NO OTHER APPARENT SIGNS OF DISTRESS. CALL LIGHT IS IN REACH.
--- NOTE | 2024-10-22 05:15 | NUR ---
PT IS AAO X 4 MOSTLY, SHE IS DEVELOPMENTALLY DISABLED. DENIES SOB, ON 2 L O2 NC AT 94%. PT HAD EPISODE OF BEING A LITTLE SWEATY WHEN USING THE BATHROOM THIS MORNING AND HAD SOME CHILLS AFTERWARDS. VSS, DENIED ANY DISCOMFORT, BS WAS 88, DECLINED A FRESH GOWN. PT IS OCCASSIONALLY INCONTINENT, USING PULL UPS.
--- NOTE | 2024-10-22 05:54 | NUR ---
PT LYING IN BED, AWAKE, NO APPARENT SIGNS OF DISTRESS. DENIES ANY DISCOMFORT AT THIS TIME. CALL LIGHT IS IN REACH. NO OTHER CHANGES THIS SHIFT.
[2024-10-22 06:02] LABS: BASOPHILS ABSOLUTE AUTO 0.02 K/mm3 (0.00-0.23); BASOPHILS PERCENT AUTO 0 % (0-2); EOSINOPHILS ABSOLUTE AUTO 0.18 K/mm3 (0.00-0.68); EOSINOPHILS PERCENT AUTO 2 % (0-6); Hemoglobin 12.6 g/dL (11.5-16.0); IMMATURE GRAN ABSOLUTE AUTO 0.24 K/mm3 (0.00-0.10); IMMATURE GRAN PERCENT AUTO 3 % (0-1); LYMPHOCYTES ABSOLUTE AUTO 1.42 K/mm3 (0.84-5.20); LYMPHOCYTES PERCENT AUTO 15 % (21-46); MONOCYTES ABSOLUTE AUTO 0.38 K/mm3 (0.16-1.47); MONOCYTES PERCENT AUTO 4 % (4-13); Mean Corpuscular HGB 31.3 pg (26.0-34.0); Mean Corpuscular Volume 90 fL (80-100); Mean Platelet Volume 8.3 fL (9.1-12.4); NEUTROPHILS ABSOLUTE AUTO 7.18 K/mm3 (1.96-9.15); NEUTROPHILS PERCENT AUTO 76 % (41-73); NRBC ABSOLUTE 0.07 K/mm3 (0.00-0.02); NRBC Auto 0.7 /100 WBC (0.0-0.2); Platelet Count 519 K/mm3 (150-400); RDW Coefficient Variation 12.8 % (11.7-14.2); RDW Standard Deviation 40.2 fL (35.1-46.3); Red Blood Cell Count 4.02 M/mm3 (3.80-5.20); White Blood Cell Count 9.42 K/mm3 (4.00-11.30)
[2024-10-22 06:33] LABS: Albumin, Blood 2.9 g/dL (3.4-5.0); Albumin/Globulin Ratio 0.6 (0.8-1.8); Bilirubin, Total 0.5 mg/dL (0.1-1.0); Bun/Creatinine Ratio 18.5 (12.0-20.0); Creatinine, Blood 0.81 mg/dL (0.40-1.00); Globulin, Blood 4.8 g/dL (2.2-4.0); Potassium, Blood 3.5 mmol/L (3.5-5.5); Total Protein, Blood 7.7 g/dL (6.4-8.2)
[2024-10-22 07:41] VITALS: BP 117/78
[2024-10-22] MEDS ORDERED: Enoxaparin 40 MG/0.4 ML SYR SC SCH (09:00)
[2024-10-22] MEDS ORDERED: Lactobacil 2-S.Thermo-Bifido 1 1 Cap PO SCH (09:00)
[2024-10-22] MEDS ORDERED: Doxycycline Hyclate 100 MG in Dextrose 5% 250 ML IV SCH (09:00)
[2024-10-22] MEDS ORDERED: CefTRIAXone Sodium 1,000 MG in NS 100 ML IV SCH (09:00)
[2024-10-22] MEDS ORDERED: NS 250 ML IV PRN (09:25)
--- NOTE | 2024-10-22 16:44 | NUR ---
DISCHARGE NOTE PT A&OX3. PT HAS SOME DEVELOPMENTAL DELAYS. PT ADMITTED DUE TO RESPIRATORY FAILURE WITH HYPOXIA. PT SAW SPEECH THERAPY THIS AM. SPEECH THERAPY REPORTED NO STRAWS AND TAKE MEDS WITH APPLESAUCE. PT SAW RESPIRATORY THERAPY DURING SHIFT FOR O2 NEEDS AND NEB. PT INDEPENDENT IN ROOM. MOM AND CAREGIVER AT BEDSIDE THROUGH SHIFT. PT REPORTED COUGH AND SOB THROUGH SHIFT. PT REPORTED NO PAIN. PT RECEIVED HOME O2 EVAL, O2 GOT ORDERED AND BROUGHT. PT ON 2L VIA N/C AND 3L O2 WITH AMBULATION. PT AND CAREGIVER EDUCATED ON ASPIRATION PERCAUTIONS, O2 USE, MEDS, AND DISCHARGE INSTRUCTIONS. PT TOOK PERSONAL BELONGINGS, GOT WHEELED OUT BY THIS RN TO PERSONAL AUTOMOBILE. CAREGIVER TOOK PT.
== END 2024-10-22 16:33 | disposition home or self-care (01) ==
LOC: ER 18:53 → MEDS 18:54
PROVIDERS: Emergency Medicine; Family Medicine; ADMIT Student in an Organized Health Care Education/Training Program
DX: J96.21 Acute and chronic respiratory failure with hypoxia (principal); J69.0 Pneumonitis due to inhalation of food and vomit; D64.9 Anemia, unspecified; R62.50 Unspecified lack of expected normal physiological development in childhood; Z79.899 Other long term (current) drug therapy
CPT/HCPCS: 0241U; 36415; 71045; 71260; 80048; 80053; 82947; 84145; 84484; 85025; 85379; 92610; 93005; 93010; 94640; 94664; 94760; 94761; 96365-59; 96366; 96367; 99285-25; A9270; G0378; J0696; J2060; J7050; J7060; Q9967

== ENCOUNTER 2024-10-22 21:40 | Emergency (ER) | payer OTHER ==
[~2024-10-22] VITALS: Ht 162.6 cm; Wt 79.4 kg
[~2024-10-22 21:40] MED LIST changes: +[UNRECOGNIZED DRUG - OTHER] PO
[2024-10-22 22:53] LABS: BASOPHILS ABSOLUTE AUTO 0.02 K/mm3 (0.00-0.23); BASOPHILS PERCENT AUTO 0 % (0-2); EOSINOPHILS ABSOLUTE AUTO 0.19 K/mm3 (0.00-0.68); EOSINOPHILS PERCENT AUTO 2 % (0-6); Hemoglobin 11.3 g/dL (11.5-16.0); IMMATURE GRAN ABSOLUTE AUTO 0.15 K/mm3 (0.00-0.10); IMMATURE GRAN PERCENT AUTO 2 % (0-1); LYMPHOCYTES ABSOLUTE AUTO 1.62 K/mm3 (0.84-5.20); LYMPHOCYTES PERCENT AUTO 17 % (21-46); MONOCYTES ABSOLUTE AUTO 0.43 K/mm3 (0.16-1.47); MONOCYTES PERCENT AUTO 5 % (4-13); Mean Corpuscular HGB 30.6 pg (26.0-34.0); Mean Corpuscular HGB Conc 34.2 g/dL (31.5-36.5); Mean Corpuscular Volume 89 fL (80-100); NEUTROPHILS ABSOLUTE AUTO 7.02 K/mm3 (1.96-9.15); NEUTROPHILS PERCENT AUTO 74 % (41-73); NRBC ABSOLUTE 0.06 K/mm3 (0.00-0.02); NRBC Auto 0.6 /100 WBC (0.0-0.2); Platelet Count 444 K/mm3 (150-400); RDW Coefficient Variation 12.8 % (11.7-14.2); RDW Standard Deviation 40.5 fL (35.1-46.3); Red Blood Cell Count 3.69 M/mm3 (3.80-5.20); White Blood Cell Count 9.43 K/mm3 (4.00-11.30)
[2024-10-22 23:14] LABS: Albumin, Blood 2.7 g/dL (3.4-5.0); Albumin/Globulin Ratio 0.6 (0.8-1.8); Bilirubin, Total 0.2 mg/dL (0.1-1.0); Bun/Creatinine Ratio 18.1 (12.0-20.0); Calcium, Blood 9.1 mg/dL (8.5-10.1); Creatinine, Blood 0.77 mg/dL (0.40-1.00); Globulin, Blood 4.3 g/dL (2.2-4.0); Potassium, Blood 3.9 mmol/L (3.5-5.5)
[2024-10-23 00:45] VITALS: BP 142/95
== END 2024-10-23 01:09 | disposition home or self-care (01) ==
LOC: ER 21:40
PROVIDERS: Student in an Organized Health Care Education/Training Program
DX: J69.0 Pneumonitis due to inhalation of food and vomit (principal); R09.02 Hypoxemia
CPT/HCPCS: 71045; 80053; 85025; 99285-25